=== PATIENT | male | born 1960 | race Caucasian/White ===

== ENCOUNTER → 2016-08-28 | Outpatient (CLI) | payer OTHER ==
[~2016-08-28] MED LIST: ALBU1AER9 INH; ATOR-26 PO; BREX1TAB2 PO; CARV12.52 PO; CHLO100T8 PO; CIPR-255 PO; FLVHFA110 INH; HMLI SC; INSDGI SC; LEVO50TA6 PO; LSN20 PO; MELA1CAP9 PO; MIRT30TA5 PO; NRN400 PO; PRT/40 PO; SILO8CAP PO; SOLI10TA2 PO; TIOTCAP INH
== END | disposition home or self-care (01) ==
LOC: C.PATHSPEC 17:52
PROVIDERS: ATTEND Urology
DX: D49.4 Neoplasm of unspecified behavior of bladder (principal); N30.20 Other chronic cystitis without hematuria

== ENCOUNTER → 2017-01-08 | Outpatient (CLI) | payer OTHER ==
[~2017-01-08] MED LIST changes: +LDDP5 TD; +LVQ500 PO; +PANT40TA2 PO; +PRED10TA PO; -PRT/40 PO; +QUET1TAB34 PO; +SPRIN INH; +WLLSR/300 PO
== END | disposition home or self-care (01) ==
LOC: C.LABSPEC 17:10 → C.PATHSPEC 17:36
PROVIDERS: ATTEND Urology
DX: D49.4 Neoplasm of unspecified behavior of bladder (principal)

== ENCOUNTER → 2017-04-16 | Outpatient (CLI) | payer OTHER ==
[~2017-04-16] MED LIST changes: -LDDP5 TD; -LVQ500 PO; -PANT40TA2 PO; -PRED10TA PO; +PRT/40 PO; -QUET1TAB34 PO; -SPRIN INH; -WLLSR/300 PO
== END | disposition home or self-care (01) ==
LOC: C.PATHSPEC 17:49
PROVIDERS: ATTEND Urology
DX: D49.4 Neoplasm of unspecified behavior of bladder (principal)

== ENCOUNTER 2017-07-14 14:06 | Inpatient (IN) | payer OTHER ==
[~2017-07-14] VITALS: Ht 182.9 cm; Wt 141.6 kg
[~2017-07-14 14:06] MED LIST changes: +PANT40TA2 PO; -PRT/40 PO
[2017-07-14 18:00] VITALS: BP 160/96; PULSE 82; TEMP 36.8; O2SAT 91; BMI 41.9
[2017-07-14] MEDS ORDERED: GLUCOSE 40% GEL 15 GM TUBE PO PRN (18:45)
[2017-07-14] MEDS ORDERED: GLUCOSE 10 TABS/TUBE PO PRN (18:45)
[2017-07-14] MEDS ORDERED: GLUCAGON FOR INJ 1 MG VIAL SQ PRN (18:45)
[2017-07-14] MEDS ORDERED: DEXTROSE 50% 50 ML SYR IV PRN (18:45)
[2017-07-14] MEDS ORDERED: WLLSR/300 PO (18:49)
[2017-07-14] MEDS ORDERED: QUET1TAB34 PO (18:49)
[2017-07-14] MEDS ORDERED: ONDANSETRON INJ 2 MG/ML 2 ML VIAL IV PRN (19:00)
[2017-07-14] MEDS ORDERED: ALUMINUM/MAGNESIUM/SIMETH (MAALOX MAX) 30 ML UDC PO PRN (19:00)
[2017-07-14] MEDS ORDERED: POLYETHYLENE (MIRALAX) 17 GM PACK PO PRN (19:00)
[2017-07-14] MEDS ORDERED: METHYLPREDNISOLONE IV 125 MG in SYRINGE 0 ML IV ONE (19:00)
[2017-07-14 19:31] LABS: ARTERIAL BLD GAS O2 SATURATION 92.2 % (90-95); ARTERIAL BLOOD GAS BASE EXCESS 7.8 mEq/L (-9-1.8); ARTERIAL BLOOD GAS HCO3 36 mmol/L (19-24); ARTERIAL BLOOD GAS PO2 72 mm/Hg (80-95); ARTERIAL BLOOD GAS pH 7.33 (7.35-7.45)
[2017-07-14 19:33] LABS: ALLEN TEST POS (POS); O2 ADMINISTRATION 4 LITERS
--- NOTE | 2017-07-14 19:54 | Critical Care Progress Note ---
Critical Care Progress Note Date of Service Jul 14, 2017. Critical Care Progress Note Requested to see patient by Dr. Lynch for hypercarbic respiratory failure. Patient had recent fall and right chest wall pain prompting ED evaluation and when patient recieved 0.5 mg IV dilaudid patient became unresponsive. During my evaluation patient was alert oriented x3 and admitted to being hungry. Reviewed labs, compensated chronic respiratory acidosis. Reviewed old records no fx seen on OSH CT of chest. Not candidate for CCM at this time. Would avoid narcotic medication. Lidoderm patches, tylenol, NSAID prn. Please call CCM if any other issues arise.
[2017-07-14 20:00] VITALS: O2SAT 91
--- NOTE | 2017-07-14 20:17 | History and Physical ---
History & Physical Date of Service Jul 14, 2017. History & Physical pt seen and examed, d/w PA about davila points of dignosis and care plan, agreed current management, for details please referral to PA's note S: pt has copd exac, asso acute resp failure with hypoxia, hypercapnia with ph 7.29, PCO2 80, PaO2 58 transferred from [facility] lethargic, but oaax3, increased resp rate on NC O2, asso wheezing, ROS details see PA's note O: VS reviewed, RR26, 88% osat 91% in 4 LPM, lethargic, looks tired Lungs: significant decreased breathing sound, mild labored, asso wheezing sporadically, no accessory muscle use Cardiovascular: regular rate, rhythm, no edema, normal peripheral pulses Abdomen / GI: normal bowel sounds, non tender, soft Extremities: no calf tenderness, no pedal edema Neurologic/Psychiatric: lethargic , oriented x 3, CNII-XII intact labs, images reviewed , see PA's note A/P: 57 yo WF copd exac, asso acute resp failure with hypoxia, hypercapnia with ph 7.29, PCO2 80, PaO2 58 transferred from [facility] Critical care eval patient , Not candidate for CCM at this time, recs avoid narcotic medication, fell, ribs contusion, CT of chest has no fx, but pt reported severe pain, Lidoderm patches, tylenol, NSAID prn, ordered counselling quit smoking, offered help PCU, pulm and pain magt consult hx of cough spell and black out prior admission , will f/u PTOT eval and tx.
--- NOTE | 2017-07-14 20:22 | History and Physical ---
History & Physical Date & Time of Service: Jul 14, 2017 at 20:04 Chief Complaint: Acute On Chronic Respiratory Failure Primary Care Physician: No Doctor, Assigned History of Present Illness Source: patient, partner, clinic records, hospital records ([facility] ED records) This is a 57 y/o male with a history of COPD, DM II w/neuropathy, HTN, HLD, post ablative hypothyroidism, bipolar depression, h/o bladder cancer currently in remission, BPH and GERD who presented for direct admission from [facility] on 07/14 with COPD exacerbation and respiratory acidosis. The patient complains of worsening shortness of breath, dyspnea on exertion and intermittent wheezing over the last week. He also notes a productive cough with thick, white sputum. He has been having such severe coughing fits that he has difficulty breathing. On 07/09, the patient was at an AA meeting when he had a coughing fit so severe that he lost consciousness and fell into a table on his left side. Since the fall, the patient has had severe left rib pain that is mostly dull and achy but can become sharp and shooting. The pain is currently a 7/10 and becomes more severe with coughing and deep breaths. The patient initially presented to [facility] ED and was admitted 07/13. He was given a dose of Dilaudid for the pain while in the ED which caused him to become hypoxic. He has been on supplemental oxygen since. The patient was found to be in respiratory acidosis there but was not placed on BiPAP. The patient notes that he has had increased lethargy today and was fighting to stay awake, and this frightened him. The patient denies fevers, chills, sweats, chest pain , palpitations, claudication, nausea, vomiting, abdominal pain, dysuria, hematuria, urinary retention, paralysis, weakness, numbness and tingling. Past Medical/Surgical History COPD DM II HTN HLD Post ablative hypothyroidism Bipolar depression H/o bladder cancer, currently in remission as of Jun 2017 BPH GERD Family History Colon cancer Esophageal cancer Social History Smoking Status: Current Every Day Smoker (over 3 packs per day x 30 years) Smokeless Tobacco Use: No Alcohol Use: none (sober since 2008) Drug Use: none (none since 2002) Marital Status: in relationship Housing status: lives alone Occupational Status: disabled Allergies Coded Allergies: Metformin (Unverified Adverse Reaction, Unknown, DIARRHEA, 11/02/15) Home Medications Scheduled Atorvastatin (Lipitor), 80 MG PO QPM Brexpiprazole (Rexulti), 3 MG PO QAM Bupropion HCl (Wellbutrin Xl), 300 MG PEG DAILY Carvedilol (Coreg), 12.5 MG PO BID Gabapentin (Gabapentin), 800 MG PO QPM Insulin Glargine (Lantus), 77 UNITS SC HS Insulin Lispro (Humalog), 15 UNITS SC TIDM Levothyroxine Sodium (Levothyroxine Sodium), 50 MCG PO QAM Lisinopril (Lisinopril), 20 MG PO BID Melatonin (Melatonin), 60 MG PO HS Mirtazapine (Mirtazapine Odt), 30 MG PO QPM Pantoprazole (Pantoprazole Sodium), 40 MG PO QAM Quetiapine Fumarate (Seroquel), 500 MG PO HS Solifenacin (Vesicare), 20 MG PO QAM Scheduled PRN Albuterol (Proair Hfa), 4 PUFFS INH QID PRN for Shortness of Breath Review of Systems Constitutional: No fever, No chills, No sweats Eyes: No worsening of vision, No eye pain, No diplopia ENT: No hearing loss, No nasal symptoms, No trouble swallowing Respiratory: +Cough, wheezing, SOB, ESCOBAR. Cardiovascular: No chest pain, No claudication, No palpitations Abdomen: No pain, No nausea, No vomiting Musculoskeletal: +Left rib pain. No muscle pain, No swelling Genitourinary - Male: No dysuria, No urinary retention, No hematuria Neurologic: No paralysis, No weakness, No numbness/tingling Integumentary: No rash, No itch, No color change Physical Exam Vital Signs Date Time Temp Pulse Resp B/P (MAP) Pulse Ox O2 Delivery O2 Flow Rate FiO2 07/14/17 18:00 36.8 82 26 160/96 91 Nasal Cannula 4.0 General appearance: +Obese. Well-developed, well-nourished, no apparent distress Head: Normocephalic, atraumatic Eyes: Normal inspection, PERRL, EOMI ENT: +Dry oral mucosa. Normal ENT inspection, hearing grossly normal, pharynx normal Neck: Supple, no JVD, trachea midline Respiratory/Chest: +Wheezing throughout. Poor air movement, very tight. No respiratory distress Cardiovascular: Regular rate & rhythm, no gallop, no murmur Abdomen/GI: +Mild diffuse tenderness. Normal bowel sounds, soft Extremities/Musculoskeletal: +Left lateral ribs/left flank TTP. Normal inspection, no calf tenderness, no pedal edema Neurological/Psych: +Appears somewhat drowsy, reports being very lethargic this afternoon. Normal mood/affect, oriented x 3 Skin: +Ecchymoses over left flank. Normal color, warm/dry, no rash Diagnostics Laboratory Results Results Past 24 Hours Test 07/14/17 18:12 07/14/17 19:20 Range/Units Bedside Glucose 187 70-99 mg/dl Arterial Blood pH 7.33 7.35-7.45 Arterial Blood Partial Pressure CO2 71 35-46 mmHg Arterial Blood Partial Pressure O2 72 80-95 mm/Hg Arterial Blood HCO3 36 19-24 mmol/L Arterial Blood Oxygen Saturation 92.2 90-95 % Arterial Blood Base Excess 7.8 -9-1.8 mEq/L Arterial Blood Gas Delivery 4 LITERS Jorge Test POS POS Impression Assessment and Plan 57 y/o male with a history of COPD, DM II w/neuropathy, HTN, HLD, post ablative hypothyroidism, bipolar depression, h/o bladder cancer currently in remission, BPH and GERD who presented for direct admission from [facility] on 07/14 with COPD exacerbation and respiratory acidosis. CXR and chest CT from OSH did not show any acute rib fractures or acute cardiopulmonary findings. ABG from OSH did show pH 7.26, pCO2 88, pO2 58. Pt also received 2 doses of oral prednisone at OSH due to COPD exacerbation. COPD exacerbation, respiratory acidosis -Admit to telemetry -Stat ABG -BiPAP -Repeat ABG tomorrow am -Solu-Medrol 125 mg IV x 1 now, then -Solu-Medrol 40 mg IV q6h -DuoNebs QIDR and q2h prn SOB/wheezing -Consult pulmonology per Dr. Egan's request -Check urine drug screen, pt has h/o drug abuse -Pt was on Spiriva several years ago, but has not taken this as an outpt for a long time Left rib pain--no fractures seen on OSH imaging reports -Toradol 30 mg IV q6h prn pain -Tylenol prn -Avoid narcotics as Dilaudid 0.5 mg IV x 1 caused significant respiratory depression DM II w/neuropathy--last HgbA1c on record in 2012 -Lantus 77 units SC hs -Insulin sliding scale -Check BSGs q ac and qhs -Recheck HgbA1c -Continue gabapentin 800 mg PO hs HTN, HLD--stable -Continue lisinopril 20 mg PO BID, Coreg 12.5 mg PO BID and Lipitor 80 mg PO hs Post ablative hypothyroidism -Continue Synthroid 50 mcg PO qd Bipolar depression -Continue Rexulti 3 mg PO qd, Wellbutrin 300 mg PO qd, Remeron 30 mg PO hs, and Seroquel 500 mg PO hs BPH, h/o bladder cancer--pt follows with Dr. Adkins -Continue Vesicare 20 mg PO qam DVT prophylaxis -Enoxaparin 40 mg SC q24h -AJIT Alan Code Status -Level I, FULL RESUSCITATION STATUS Level of Care Telemetry Advanced Directives Existing Living Will: No Existing Power of Public Employment Mediator: No Resuscitation Status FULL RESUSCITATION VTE Prophylaxis VTE Risk Assessment Done? Y/N: Yes Risk Level: Moderate Given or contraindicated: Enoxaparin (Lovenox)SQ, T.E.D. Stockings, SCD's
[2017-07-14 20:30] VITALS: BP 149/77; PULSE 87; TEMP 37.1; O2SAT 88
[2017-07-14] MEDS: PATIENT'S HEIGHT AND/OR WEIGHT NEEDED SCH ×2 (20:30→22:30)
[2017-07-14] MEDS ORDERED: MELATONIN PO SCH (21:00)
[2017-07-14] MEDS: INSULIN ASPART 100 UNITS/ML 3 ML PEN SC SCH (21:00)
[2017-07-14] MEDS ORDERED: INSULIN GLARGINE SOLOSTAR 100 UNITS/ML 3 ML PEN SC SCH (21:00)
[2017-07-14 21:11] LABS: PROTHROMBIN TIME (PATIENT) 10.6 SECONDS (9.0-12.0)
[2017-07-14] MEDS: ALBUT/IPRATROP 3MG/0.5MG NEB 3 ML VIAL INH SCH (21:26)
[2017-07-14 21:27] VITALS: PULSE 81; O2SAT 91
[2017-07-14 21:27] LABS: BENZODIAZEPINE, URINE NEG (NEG); COCAINE,URINE NEG (NEG); PHENCYCLIDINE, URINE NEG (NEG)
[2017-07-14] MEDS: MIRTAZAPINE SOLTAB 15 MG PO SCH (21:48)
[2017-07-14] MEDS: CARVEDILOL 12.5 MG TAB PO SCH (21:49)
[2017-07-14] MEDS: ATORVASTATIN 40 MG TAB PO SCH (21:49)
[2017-07-14] MEDS: GABAPENTIN 400 MG CAP PO SCH (21:50)
[2017-07-14] MEDS: LISINOPRIL 20 MG TAB PO SCH (21:50)
[2017-07-14] MEDS: QUETIAPINE FUMARATE 100 MG TAB PO SCH (21:51)
[2017-07-14] MEDS: KETOROLAC TROMETHAMINE 30 MG/ML VIAL IV PRN (22:08)
[2017-07-14 23:52] VITALS: BP 143/77; PULSE 93; TEMP 36.6; O2SAT 88
[2017-07-14 23:59] VITALS: O2SAT 91
[2017-07-15] VITALS (13 sets, daily range): BP systolic 125–159; BP diastolic 69–87; PULSE 61–86; TEMP 36.2–36.9; O2SAT 90–98; Ht 182.9 cm; Wt 141.6 kg
[2017-07-15] MEDS: ENOXAPARIN 40 MG/0.4 ML SYR SC SCH ×2 (00:01→21:00)
[2017-07-15] MEDS: METHYLPREDNISOLONE IV 40 MG in SYRINGE 0 ML IV SCH ×4 (00:03→16:51)
[2017-07-15] MEDS: PATIENT'S HEIGHT AND/OR WEIGHT NEEDED SCH ×2 (00:03→02:10)
[2017-07-15] MEDS ORDERED: INFLUENZA VIRUS QUAD VACCINE 0.5 ML SYR IM. ONE (05:00)
[2017-07-15] MEDS ORDERED: INFLUENZA ADMINISTRATION CHARGE ONE (05:00)
[2017-07-15] MEDS ORDERED: NURSING DECISION MEDICATION ORDER SCH (05:15)
[2017-07-15] MEDS: LEVOTHYROXINE 50 MCG TAB PO SCH (05:52)
[2017-07-15] MEDS: ALBUT/IPRATROP 3MG/0.5MG NEB 3 ML VIAL INH SCH ×4 (06:23→19:13)
[2017-07-15] MEDS: PANTOprazole SOD 40 MG TAB PO SCH (08:05)
[2017-07-15] MEDS: LIDODERM (LIDOCAINE) PATCH 5% TD SCH (08:06)
[2017-07-15] MEDS: BuPROPion XL 300 MG TABCR PO SCH (08:06)
[2017-07-15] MEDS: LISINOPRIL 20 MG TAB PO SCH ×2 (08:06→20:59)
[2017-07-15] MEDS: CARVEDILOL 12.5 MG TAB PO SCH ×2 (08:06→21:00)
[2017-07-15] MEDS: INSULIN ASPART 100 UNITS/ML 3 ML PEN SC SCH ×4 (08:13→21:06)
[2017-07-15] MEDS: KETOROLAC TROMETHAMINE 30 MG/ML VIAL IV PRN ×2 (08:21→16:51)
[2017-07-15 09:17] LABS: ARTERIAL BLD GAS O2 SATURATION 92.2 % (90-95); ARTERIAL BLOOD GAS BASE EXCESS 6.8 mEq/L (-9-1.8); ARTERIAL BLOOD GAS HCO3 36 mmol/L (19-24); ARTERIAL BLOOD GAS PO2 73 mm/Hg (80-95); ARTERIAL BLOOD GAS pH 7.29 (7.35-7.45)
[2017-07-15 09:18] LABS: O2 ADMINISTRATION 40%
[2017-07-15 09:20] LABS: ALLEN TEST POS (POS)
[2017-07-15 09:20] LABS: HEMATOCRIT 39.4 % (42-52); MEAN CELL VOLUME 93.4 fL (80-100); MEAN CORPUSCULAR HEMOGLOBIN 28.7 pg (25-34); MEAN CORPUSCULAR HGB CONC 30.7 g/dl (32-36); MEAN PLATELET VOLUME 8.5 fL (7.4-10.4); PLATELET COUNT 173 K/uL (130-400); RED BLOOD COUNT 4.22 M/uL (4.7-6.1); WHITE BLOOD COUNT 12.98 K/uL (4.8-10.8)
[2017-07-15 09:36] LABS: BUN/CREATININE RATIO 20.6 (10-20); CALCIUM 8.8 mg/dl (8.5-10.1); CREATININE 0.79 mg/dl (0.60-1.40); MAGNESIUM 2.3 mg/dl (1.8-2.4); PHOSPHORUS 4.1 mg/dl (2.5-4.9); POTASSIUM 4.7 mmol/L (3.5-5.1)
[2017-07-15 10:34] LABS: ESTIMATED AVERAGE GLUCOSE 180 mg/dl; HA1C FLAG Normal (Normal)
--- NOTE | 2017-07-15 11:28 | Hospitalist Progress Note ---
Hospitalist Progress Note Date of Service Jul 15, 2017. Subjective Pt evaluation today including: conversation w/ patient Voiding: no voiding problems Pt still having pain left ribs but feels better with pain patch on. Coughing a lot for a few weeks. Committed to quitting smoking. Has not moved bowels in 4 days All Other Systems: Reviewed and Negative Objective Vital Signs Date Time Temp Pulse Resp B/P (MAP) Pulse Ox O2 Delivery O2 Flow Rate FiO2 07/15/17 08:00 Oxymask 4.0 07/15/17 07:14 36.5 82 20 129/76 (93) 90 Oxymask 4.0 07/15/17 06:23 86 20 91 Mask 4.0 07/15/17 04:00 36.9 84 22 133/75 (94) 90 Oxymask 4.0 07/15/17 04:00 91 Oxymask 4.0 07/14/17 23:59 91 Nasal Cannula 4.0 07/14/17 23:52 36.6 93 26 143/77 (99) 88 Oxymask 4.0 07/14/17 21:27 81 22 91 Nasal Cannula 4.0 07/14/17 20:30 37.1 87 32 149/77 (101) 88 Nasal Cannula 4.0 07/14/17 20:00 91 Nasal Cannula 4.0 07/14/17 18:00 36.8 82 26 160/96 91 Nasal Cannula 4.0 Physical Exam General Appearance: no apparent distress (but is drowsy, keeps closing eyes while I'm talking to him), + obese Eyes: normal inspection, sclerae normal ENT: hearing grossly normal Neck: trachea midline Respiratory/Chest: no respiratory distress, no accessory muscle use, + pertinent finding (significantly decreased BS throughout with very faint exp wheezes) Cardiovascular: regular rate, rhythm, no edema, no murmur Abdomen: normal bowel sounds, non tender, soft (and obese) Extremities: no pedal edema, no calf tenderness Neurologic/Psychiatric: normal mood/affect, oriented x 3, + pertinent finding ( drowsy but wakes up easily) Skin: normal color, warm/dry, no rash Laboratory Results Last 24 Hours Test 07/14/17 18:12 07/14/17 19:20 07/14/17 20:22 07/14/17 20:31 Bedside Glucose 187 mg/dl 161 mg/dl Arterial Blood pH 7.33 Arterial Blood Partial Pressure CO2 71 mmHg Arterial Blood Partial Pressure O2 72 mm/Hg Arterial Blood HCO3 36 mmol/L Arterial Blood Oxygen Saturation 92.2 % Arterial Blood Base Excess 7.8 mEq/L Arterial Blood Gas Delivery 4 LITERS Jorge Test POS Prothrombin Time 10.6 SECONDS Prothromb Time International Ratio 1.0 Test 07/15/17 06:56 07/15/17 08:50 07/15/17 08:58 Bedside Glucose 221 mg/dl White Blood Count 12.98 K/uL Red Blood Count 4.22 M/uL Hemoglobin 12.1 g/dL Hematocrit 39.4 % Mean Corpuscular Volume 93.4 fL Mean Corpuscular Hemoglobin 28.7 pg Mean Corpuscular Hemoglobin Concent 30.7 g/dl RDW Standard Deviation 51.4 fL RDW Coefficient of Variation 15.1 % Platelet Count 173 K/uL Mean Platelet Volume 8.5 fL Sodium Level 133 mmol/L Potassium Level 4.7 mmol/L Chloride Level 95 mmol/L Carbon Dioxide Level 37 mmol/L Anion Gap 1.0 mmol/L Blood Urea Nitrogen 16 mg/dl Creatinine 0.79 mg/dl Est Creatinine Clear Calc Drug Dose 149.1 ml/min Estimated GFR () 115.5 Estimated GFR (Non- 99.7 BUN/Creatinine Ratio 20.6 Random Glucose 237 mg/dl Estimated Average Glucose 180 mg/dl Hemoglobin A1c 7.9 % Calcium Level 8.8 mg/dl Phosphorus Level 4.1 mg/dl Magnesium Level 2.3 mg/dl Arterial Blood pH 7.29 Arterial Blood Partial Pressure CO2 76 mmHg Arterial Blood Partial Pressure O2 73 mm/Hg Arterial Blood HCO3 36 mmol/L Arterial Blood Oxygen Saturation 92.2 % Arterial Blood Base Excess 6.8 mEq/L Arterial Blood Gas Delivery 40% Jorge Test POS Assessment and Plan Pt is a 57 y/o male with a history of COPD, DM II w/neuropathy, HTN, HLD, post ablative hypothyroidism, bipolar d/o, h/o bladder cancer currently in remission , BPH and GERD who presented for direct admission from [facility] on 07/14 with COPD exacerbation and acute on chronic hypercapnic and hypoxemic respiratory failure. CXR and chest CT did not show any acute rib fractures or acute cardiopulmonary findings but showed emphysematous changes. ABG from [facility] did show pH 7.26, pCO2 88, pO2 58. Pt also received 2 doses of oral prednisone at [facility] due to COPD exacerbation, but he was not placed on BiPAP. Acute COPD exacerbation/Acute on chronic hypercapnic and hypoxemic respiratory failure/Current smoker. ABG this AM still 7.29/76/73 on 40% O2 which is worse than last night. Drowsy. Not moving air well at all. -continue telemetry -start BiPAP now -Repeat ABG in 1 hour after BiPAP started -continue Solu-Medrol 40 mg IV q6h -DuoNebs QIDR -add Levaquin 500mg IV daily for OCPD exacerbation -Consult pulmonology appreciated -Pt was on Spiriva several years ago, but has not taken this as an outpt for a long time-restart on dc -needs Symbicort likely as well on dc -needs formal PFTs as outpt Left rib pain--no fractures seen on imaging reports -Toradol 30 mg IV q6h prn pain -lidocaine patch -Tylenol prn -Avoid narcotics as Dilaudid 0.5 mg IV x 1 caused significant respiratory depression DM II w/neuropathy--HgbA1c 7.9%, with hyperglycemia here due to steroids -Lantus 77 units SC hs and add 10 units qhs -Insulin sliding scale and add carb coverage -Check BSGs q ac and qhs -Continue gabapentin 800 mg PO hs HTN, HLD--stable -Continue lisinopril 20 mg PO BID, Coreg 12.5 mg PO BID and Lipitor 80 mg PO hs Post ablative hypothyroidism-no recent TSH in our records -Continue Synthroid 50 mcg PO qd -check TSH Bipolar d/o- Tox screen likely with false + MDMA from wellbutrin usage -Continue Rexulti 3 mg PO qd if he can bring from home -continue Wellbutrin 300 mg PO qd, Remeron 30 mg PO hs, and Seroquel 500 mg PO hs BPH, h/o bladder cancer--pt follows with Dr. Adkins - Vesicare 20 mg PO qam not available here-will watch for bladder issues GERD-continue PPI DVT prophylaxis -Enoxaparin 40 mg SC q24h -AJIT gupta and SCDs Code Status -Level I, FULL RESUSCITATION STATUS
[2017-07-15] MEDS ORDERED: NURSING VERBAL MED ORDER ONE (11:45)
[2017-07-15] MEDS ORDERED: NovoLOG PER UNIT CHARGE SC ONE (11:45)
[2017-07-15] MEDS: LEVOFLOXACIN / D5W 500 MG in PREMIXED IN D5W 100 ML IV SCH (11:56)
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
[2017-07-15 13:21] LABS: ALLEN TEST POS (POS); ARTERIAL BLD GAS O2 SATURATION 90.8 % (90-95); ARTERIAL BLOOD GAS BASE EXCESS 6.9 mEq/L (-9-1.8); ARTERIAL BLOOD GAS HCO3 35 mmol/L (19-24); ARTERIAL BLOOD GAS PO2 66 mm/Hg (80-95); ARTERIAL BLOOD GAS pH 7.33 (7.35-7.45); O2 ADMINISTRATION 4L
--- NOTE | 2017-07-15 13:52 | DIAGNOSTIC IMAGING REPORT ---
CT HEAD WITHOUT CONTRAST (CT) CLINICAL HISTORY: Head pain status post trauma COMPARISON STUDY: No previous studies for comparison. TECHNIQUE: Axial CT of the brain is performed from the vertex to the skull base. IV contrast was not administered for this examination. A dose lowering technique was utilized adhering to the principles of ALARA. CT DOSE: 810.83 mGy.cm FINDINGS: No intra or extra-axial mass lesions are visualized. There is no CT evidence of acute cortical infarction. There is no evidence of midline shift. There is no acute hemorrhage. No calvarial fractures are visualized. There is right frontal encephalomalacia, likely secondary to a prior infarct or remote trauma. Please correlate with prior history. If this finding is incongruent with the prior history, then an MRI could be obtained in follow-up, to exclude other pathologic entities. There is no evidence of pathologic ventricular dilatation. There is mild left maxillary sinus mucosal thickening. There is no evidence of acute sinusitis. There is nasal septal deviation to the right. IMPRESSION: 1. No acute intracranial findings 2. 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 07/15/2017 1:51 PM Dictated Date/Time: 07/15/2017 1:47 PM
[2017-07-15 16:40] LABS: ARTERIAL BLOOD GAS BASE EXCESS 7.3 mEq/L (-9-1.8); ARTERIAL BLOOD GAS HCO3 34 mmol/L (19-24); ARTERIAL BLOOD GAS PO2 60 mm/Hg (80-95); ARTERIAL BLOOD GAS pH 7.38 (7.35-7.45)
[2017-07-15 16:41] LABS: ALLEN TEST POS (POS)
[2017-07-15] MEDS: MIRTAZAPINE SOLTAB 15 MG PO SCH (20:58)
[2017-07-15] MEDS: QUETIAPINE FUMARATE 100 MG TAB PO SCH (20:59)
[2017-07-15] MEDS ORDERED: INSULIN GLARGINE SOLOSTAR 100 UNITS/ML 3 ML PEN SC SCH ×2 (21:00)
[2017-07-15] MEDS: GABAPENTIN 400 MG CAP PO SCH (21:07)
[2017-07-15] MEDS: ATORVASTATIN 40 MG TAB PO SCH (21:07)
[2017-07-15] MEDS: INSULIN GLARGINE SC SCH (21:28)
[2017-07-16] VITALS (13 sets, daily range): BP systolic 134–163; BP diastolic 73–92; PULSE 68–78; TEMP 36.4–36.7; O2SAT 90–95
[2017-07-16] MEDS: METHYLPREDNISOLONE IV 40 MG in SYRINGE 0 ML IV SCH ×4 (00:22→21:23)
[2017-07-16] MEDS: KETOROLAC TROMETHAMINE 30 MG/ML VIAL IV PRN ×3 (00:27→15:54)
[2017-07-16] MEDS: ACETAMINOPHEN 325 MG TAB PO PRN (05:04)
[2017-07-16] MEDS: LEVOTHYROXINE 50 MCG TAB PO SCH (05:04)
[2017-07-16 07:08] LABS: COMPLETE YES; HEMATOCRIT 39.7 % (42-52); IG% 0.3 %; LYMPH % 4.4 %; LYMPH ABS # 0.71 K/uL (1.2-3.4); MEAN CELL VOLUME 90.8 fL (80-100); MEAN CORPUSCULAR HEMOGLOBIN 28.6 pg (25-34); MEAN CORPUSCULAR HGB CONC 31.5 g/dl (32-36); MEAN PLATELET VOLUME 8.1 fL (7.4-10.4); NEUT % 90.3 %; PLATELET COUNT 169 K/uL (130-400); RED BLOOD COUNT 4.37 M/uL (4.7-6.1)
[2017-07-16 07:22] LABS: ALLEN TEST POS (POS); ARTERIAL BLD GAS O2 SATURATION 92.3 % (90-95); ARTERIAL BLOOD GAS BASE EXCESS 7.2 mEq/L (-9-1.8); ARTERIAL BLOOD GAS HCO3 35 mmol/L (19-24); ARTERIAL BLOOD GAS PO2 72 mm/Hg (80-95); ARTERIAL BLOOD GAS pH 7.36 (7.35-7.45)
[2017-07-16 07:23] LABS: O2 ADMINISTRATION 4 L
[2017-07-16] MEDS: ALBUT/IPRATROP 3MG/0.5MG NEB 3 ML VIAL INH SCH ×4 (07:23→19:12)
[2017-07-16 07:38] LABS: CREATININE 0.91 mg/dl (0.60-1.40); GLUCOSE 174 mg/dl (70-99)
[2017-07-16 07:39] LABS: ALT/SGPT 15 U/L (12-78); BUN/CREATININE RATIO 28.3 (10-20); CALCIUM 8.8 mg/dl (8.5-10.1); CARBON DIOXIDE 36 mmol/L (21-32); CHLORIDE 97 mmol/L (98-107); MAGNESIUM 2.3 mg/dl (1.8-2.4); POTASSIUM 4.9 mmol/L (3.5-5.1); SODIUM 134 mmol/L (136-145)
[2017-07-16 07:41] LABS: ALKALINE PHOSPHATASE 103 U/L (45-117); AST/SGOT 6 U/L (15-37)
[2017-07-16 07:43] LABS: BLOOD UREA NITROGEN 26 mg/dl (7-18)
[2017-07-16] MEDS: INSULIN ASPART 100 UNITS/ML 3 ML PEN SC SCH ×4 (08:53→21:28)
[2017-07-16] MEDS: LIDODERM (LIDOCAINE) PATCH 5% TD SCH (08:53)
[2017-07-16] MEDS: CARVEDILOL 12.5 MG TAB PO SCH ×2 (08:54→21:21)
[2017-07-16] MEDS: PANTOprazole SOD 40 MG TAB PO SCH (08:54)
[2017-07-16] MEDS: BuPROPion XL 300 MG TABCR PO SCH (08:54)
[2017-07-16] MEDS: LISINOPRIL 20 MG TAB PO SCH ×2 (08:54→21:22)
[2017-07-16] MEDS: TIOTROPIUM BROMIDE 5 PUFF/90 MCG INH INH SCH (08:55)
--- NOTE | 2017-07-16 10:57 | Hospitalist Progress Note ---
Hospitalist Progress Note Date of Service Jul 16, 2017. Subjective Pt evaluation today including: conversation w/ patient Pt reports feeling better today. He doesn't remember much from yesterday when he was more hypercapnic. Still feels tightness in the chest constantly. He is tolerating BiPAP at nighttime fairly well and thinks he needs one for at home. Constitutional: No fever All Other Systems: Reviewed and Negative Objective Vital Signs Date Time Temp Pulse Resp B/P (MAP) Pulse Ox O2 Delivery O2 Flow Rate FiO2 07/16/17 07:23 69 20 93 Nasal Cannula 4.0 07/16/17 07:15 36.6 70 20 134/73 (93) 91 Nasal Cannula 4.0 07/16/17 04:22 36.6 78 24 148/75 (99) 93 Nasal Cannula 3.0 07/16/17 04:00 BiPAP 30 07/15/17 23:59 BiPAP 30 07/15/17 23:47 36.2 80 32 150/82 (104) 93 BiPAP 30 07/15/17 20:00 93 Mask 3.5 30 07/15/17 19:17 36.4 76 20 159/87 (111) 91 Nasal Cannula 3.0 07/15/17 19:13 72 20 91 Nasal Cannula 3.0 07/15/17 16:00 92 Mask 3.5 30 07/15/17 15:58 76 20 92 Mask 3.5 07/15/17 15:35 76 94 30 07/15/17 15:33 36.6 61 20 148/78 (101) 98 BiPAP 07/15/17 12:00 Oxymask 5.0 07/15/17 11:51 36.5 78 18 125/69 (87) 91 Mask 07/15/17 11:19 76 20 93 Mask 4.0 Physical Exam General Appearance: WD/WN, no apparent distress, + obese Eyes: normal inspection, sclerae normal ENT: hearing grossly normal Neck: trachea midline Respiratory/Chest: no respiratory distress, no accessory muscle use, + decreased breath sounds (throughout but moving air much better today, still some faint exp wheezes, no crackles or rhonchi) Cardiovascular: regular rate, rhythm, no edema, no murmur Abdomen: normal bowel sounds, non tender, soft Extremities: normal range of motion, non-tender, normal inspection, no calf tenderness Neurologic/Psychiatric: alert, normal mood/affect, oriented x 3 Skin: normal color, warm/dry, no rash Laboratory Results Last 24 Hours Test 07/15/17 11:12 07/15/17 13:00 07/15/17 14:59 07/15/17 16:27 Bedside Glucose 457 mg/dl 143 mg/dl Arterial Blood pH 7.33 7.38 Arterial Blood Partial Pressure CO2 67 mmHg 59 mmHg Arterial Blood Partial Pressure O2 66 mm/Hg 60 mm/Hg Arterial Blood HCO3 35 mmol/L 34 mmol/L Arterial Blood Oxygen Saturation 90.8 % 89.0 % Arterial Blood Base Excess 6.9 mEq/L 7.3 mEq/L Arterial Blood Gas Delivery 4L 30% FiO2 Jorge Test POS POS Test 07/15/17 20:16 07/16/17 06:16 07/16/17 06:56 07/16/17 07:09 Bedside Glucose 205 mg/dl 167 mg/dl White Blood Count 16.20 K/uL Red Blood Count 4.37 M/uL Hemoglobin 12.5 g/dL Hematocrit 39.7 % Mean Corpuscular Volume 90.8 fL Mean Corpuscular Hemoglobin 28.6 pg Mean Corpuscular Hemoglobin Concent 31.5 g/dl Platelet Count 169 K/uL Mean Platelet Volume 8.1 fL Neutrophils (%) (Auto) 90.3 % Lymphocytes (%) (Auto) 4.4 % Monocytes (%) (Auto) 5.0 % Eosinophils (%) (Auto) 0.0 % Basophils (%) (Auto) 0.0 % Neutrophils # (Auto) 14.63 K/uL Lymphocytes # (Auto) 0.71 K/uL Monocytes # (Auto) 0.81 K/uL Eosinophils # (Auto) 0.00 K/uL Basophils # (Auto) 0.00 K/uL RDW Standard Deviation 49.2 fL RDW Coefficient of Variation 15.1 % Immature Granulocyte % (Auto) 0.3 % Immature Granulocyte # (Auto) 0.05 K/uL Sodium Level 134 mmol/L Potassium Level 4.9 mmol/L Chloride Level 97 mmol/L Carbon Dioxide Level 36 mmol/L Anion Gap 2.0 mmol/L Blood Urea Nitrogen 26 mg/dl Creatinine 0.91 mg/dl Est Creatinine Clear Calc Drug Dose 129.5 ml/min Estimated GFR () 108.0 Estimated GFR (Non- 93.2 BUN/Creatinine Ratio 28.3 Random Glucose 174 mg/dl Calcium Level 8.8 mg/dl Magnesium Level 2.3 mg/dl Total Bilirubin 0.3 mg/dl Direct Bilirubin < 0.1 mg/dl Aspartate Amino Transf (AST/SGOT) 6 U/L Alanine Aminotransferase (ALT/SGPT) 15 U/L Alkaline Phosphatase 103 U/L Total Protein 6.2 gm/dl Albumin 2.7 gm/dl Arterial Blood pH 7.36 Arterial Blood Partial Pressure CO2 62 mmHg Arterial Blood Partial Pressure O2 72 mm/Hg Arterial Blood HCO3 35 mmol/L Arterial Blood Oxygen Saturation 92.3 % Arterial Blood Base Excess 7.2 mEq/L Arterial Blood Gas Delivery 4 L Jorge Test POS Assessment and Plan Pt is a 57 y/o male with a history of COPD, DM II w/neuropathy, HTN, HLD, post ablative hypothyroidism, bipolar d/o, h/o bladder cancer currently in remission , BPH and GERD who presented for direct admission from [facility] on 07/14 with COPD exacerbation and acute on chronic hypercapnic and hypoxemic respiratory failure. CXR and chest CT did not show any acute rib fractures or acute cardiopulmonary findings but showed emphysematous changes. ABG from [facility] did show pH 7.26, pCO2 88, pO2 58. Pt also received 2 doses of oral prednisone at [facility] due to COPD exacerbation, but he was not placed on BiPAP there. Acute COPD exacerbation/Acute on chronic hypercapnic and hypoxemic respiratory failure/Current smoker. ABGs here are improving with normal pH now and PaCO2 66 today. Was encephalopathic yesterday with hypercapnia and now today much more mentally clear after using BiPAP all night and yesterday afternoon. Moving air better today Has h/o IKE and likely has OHS -continue telemetry -continue BiPAP prn during day and at nighttime -will NEED OVERNIGHT OXIMETRY OFF BIPAP with abg the subsequent AM to qualify for BiPAP at home within 48 hrs of dc -will also need 2 step for daytime O2 within 48 hrs of dc -continue Solu-Medrol 40 mg IV and will taper down to q8h -DuoNebs QIDR -continue Levaquin 500mg daily for COPD exacerbation x 7 day course, can switch to po -Consult pulmonology appreciated -Pt was on Spiriva several years ago, but has not taken this as an outpt for a long time-restart on dc -needs Symbicort or Advair likely as well on dc -needs formal PFTs as outpt Left rib pain--no fractures seen on imaging reports-improved now -Toradol 30 mg IV q6h prn pain -lidocaine patch -Tylenol prn -Avoid narcotics as Dilaudid 0.5 mg IV x 1 caused significant respiratory depression DM II w/neuropathy--HgbA1c 7.9%, with hyperglycemia here due to steroids which is now improved with increased Lantus dose -increased Lantus to 87 units SC hs for now, may need to titrate back down when steroids taper -Insulin sliding scale and add carb coverage -Check BSGs q ac and qhs -Continue gabapentin 800 mg PO hs HTN, HLD--stable -Continue lisinopril 20 mg PO BID, Coreg 12.5 mg PO BID and Lipitor 80 mg PO hs Post ablative hypothyroidism-no recent TSH in our records. TSH here low at 0.237. Not terribly off -Continue Synthroid 50 mcg PO qd which is home dose -repeat TSH in 4 weeks with PCP Bipolar d/o- Tox screen likely with false + MDMA from wellbutrin usage -Continue Rexulti 3 mg PO qd if he can bring from home -continue Wellbutrin 300 mg PO qd, Remeron 30 mg PO hs, and Seroquel 500 mg PO hs BPH, h/o bladder cancer--pt follows with Dr. Adkins - Vesicare 20 mg PO qam not available here-will watch for bladder issues GERD-continue PPI DVT prophylaxis -Enoxaparin 40 mg SC q24h -AJIT gupta and SCDs Code Status -Level I, FULL RESUSCITATION STATUS Dispo- to home likely in 2 days, needs home BiPAP and O2 arranged as above
[2017-07-16] MEDS: LEVOFLOXACIN / D5W 500 MG in PREMIXED IN D5W 100 ML IV SCH (12:39)
[2017-07-16] MEDS: MAGNESIUM HYDROXIDE SUSP 30 ML UDC PO PRN (12:41)
[2017-07-16] MEDS ORDERED: PERFLUTREN LIPID MICROSPHERE (DEFINITY) IV ONE (15:46)
--- NOTE | 2017-07-16 17:36 | ECHOCARDIOGRAM REPORT ---
*NOTICE TO RECEIVING [employer] This information is strictly Confidential and protected under [place] law. [place] law prohibits you from making any further disclosure of this information unless further disclosure is expressly permitted by the written consent of the person to whom it pertains or is authorized by law. A general authorization for the release of medical or other information is not sufficient for this purpose. Hospital accepts no responsibility if the information is made available to any other person, INCLUDING THE PATIENT. Interpretation Summary * Name: SOMMER ROY Study Date: 07/16/2017 03:21 PM BP: 160/88 mmHg * Patient Location: C.2T\S\S241\S\2 HR: 73 * : 1960 (M/d/yy) Gender: Male Height: 72 in * Age: 57 yrs Ethnicity: CA Weight: 306 lb * Ordering Physician: Marina Weiner * Performed By: Anahi Blackman RDCS * * Reason For Study: Pulmonary hypertension * BSA: 2.6 m2 * -- Conclusions -- * 1. Top-normal left ventricular size for BSA. Normal left ventricular systolic function. EF 55-60%. No regional wall motion abnormalities. No left ventricular hypertrophy. Type 2 diastolic dysfunction. * 2. Aortic valve sclerosis mild, without significant aortic valvular stenosis. * 3. Mild aortic root dilatation. * 4. Could not estimate right ventricular systolic pressure due to inadequate tricuspid regurgitant jet. * 5. Technically difficult study, enhanced with IV Definity. * 6. No prior study available for comparison. Procedure Details * A complete two-dimensional transthoracic echocardiogram was performed (2D, M-mode, Doppler and color flow Doppler). * A contrast injection of Definity was performed to improve assessment of LV function. * Contrast was injected into an intravenous site in the left arm. * One vial of Definity ultrasound contrast was diluted in normal saline to a total volume of 10 ml. A total of '3' ml of solution was administered during imaging. * Lot # [id number] of Definity utilized for procedure. * Expiration date 1 sep 29. * The attending nurse who injected the contrast agent was Obinna Portillo RN. Left Ventricle * Top-normal left ventricular size for BSA. Normal left ventricular systolic function. EF 55-60%. No regional wall motion abnormalities. No left ventricular hypertrophy. Type 2 diastolic dysfunction. Right Ventricle * Right ventricle grossly normal size to mildly dilated. * The right ventricular systolic function is normal as assessed by tricuspid annular plane systolic excursion (TAPSE) (normal >1.5 cm). Atria * The left atrial size is normal. * Right atrial size is normal. * There is no evidence of atrial septal defect, but resolution does not allow assessment for a patent foramen ovale. Mitral Valve * The mitral valve is grossly normal. * There is no mitral valve stenosis. * Significant mitral regurgitation is absent. Tricuspid Valve * The tricuspid valve is not well visualized. * There is no tricuspid stenosis. * Significant tricuspid regurgitation is absent. Aortic Valve * Aortic valve sclerosis mild, without significant aortic valvular stenosis. * The aortic valve is trileaflet. * No aortic regurgitation is present. Pulmonic Valve * The pulmonary valve is inadequately visualized, but the Doppler data is adequate for interpretation. * There is no pulmonic valvular stenosis. Great Vessels * Mild aortic root dilatation. * Ascending aorta of normal dimension Pericardium/Pleural * There is no pericardial effusion. Great Vessels * Dilated IVC with normal inspiratory collapse. MMode 2D Measurements and Calculations IVSd 1.0 cm LVIDd 5.4 cm LVIDs 3.8 cm LVPWd 0.98 cm IVS/LVPW 1.0 FS 30.1 % EDV(Teich) 141.6 ml ESV(Teich) 61.0 ml EF(Teich) 56.9 % EDV(cubed) 157.9 ml ESV(cubed) 53.8 ml EF(cubed) 65.9 % LV mass(C)d 204.0 grams LV mass(C)dI 79.9 grams/m\S\2 SV(Teich) 80.6 ml SI(Teich) 31.6 ml/m\S\2 SV(cubed) 104.0 ml SI(cubed) 40.8 ml/m\S\2 Ao root diam 4.7 cm Ao root area 17.7 cm\S\2 ACS 2.2 cm LA dimension 4.0 cm asc Aorta Diam 3.2 cm LA/Ao 0.85 LVOT diam 2.6 cm LVOT area 5.1 cm\S\2 Doppler Measurements and Calculations MV E max eddi 98.0 cm/sec MV A max eddi 85.4 cm/sec MV E/A 1.1 MV dec time 0.22 sec Ao V2 max 126.0 cm/sec Ao max PG 6.4 mmHg Ao max PG (full) 3.2 mmHg LYN(V,A) 3.6 cm\S\2 LYN(V,D) 3.6 cm\S\2 LV V1 max PG 3.2 mmHg LV V1 max 88.8 cm/sec PA V2 max 95.0 cm/sec PA max PG 3.6 mmHg PA acc slope 614.6 cm/sec\S\2 PA acc time 0.09 sec RAP systole 8.0 mmHg PA pr(Accel) 37.8 mmHg
--- NOTE | 2017-07-16 20:11 | Pulmonology Progress Note ---
Pulmonary Progress Note Date of Service Jul 16, 2017. Attending Dr. Weiner Subjective Patient is seen and examined. He states that he is feeling better. Less short of breath. Still has intermittent wheezing, with intermittent nonproductive cough. Requesting something to help make him bring up sputum. He tolerated BiPAP overnight. Objective Vital signs at the last 24 hours. MAXIMUM TEMPERATURE 36.6, blood pressure 134/ 73 to 160/88, respiratory rate 16-24, pulse oximetry 90-95% on 3 L nasal cannula. Gen.: Awake alert oriented 3, no acute respiratory distress. Able to speak in sentences without use of accessory muscles of respiration. CVS: S1-S2, regular rate and rhythm Lungs: Wheezing bilaterally throughout, prolonged expiratory phase Abdomen: Obese, nontender, nondistended bowel sounds positive Extremities: Trace edema bilateral lower extremities, no cyanosis, no clubbing Laboratory data reviewed. White blood count increased from 12-16 today. Sodium 134, chloride 97, carbon dioxide 36, BUN 26, creatinine 0.91. ABG this morning shows pH of 7.36, PCO2 of 62, PO2 of 72 with a saturation of 92 % on 4 L nasal cannula. Imaging reviewed. TTE from 07/16/2017 * 1. Top-normal left ventricular size for BSA. Normal left ventricular systolic function. EF 55-60%. No regional wall motion abnormalities. No left ventricular hypertrophy. Type 2 diastolic dysfunction. * 2. Aortic valve sclerosis mild, without significant aortic valvular stenosis. * 3. Mild aortic root dilatation. * 4. Could not estimate right ventricular systolic pressure due to inadequate tricuspid regurgitant jet. * 5. Technically difficult study, enhanced with IV Definity. * 6. No prior study available for comparison. Medications reviewed. Assessment & Plan COPD exacerbation Left flank pain status post fall Possible Obstructive sleep apnea Obesity hypoventilation syndrome Hypothyroidism Tobacco use disorder Diastolic dysfunction Mr. Alvarez is a 57-year-old male who presents after recent fall and complaints of left rib and flank pain. He was a direct transfer from [facility] after Dilaudid was administered and subsequently developed acute on chronic hypoxemic hypercapnic respiratory failure. Patient is currently wheezing and is likely in COPD exacerbation at this time. TODAY: Patient is feeling better from a respiratory standpoint. He still continues to have nonproductive cough and wheeze. He is more alert today. TTE shows grade 2 diastolic systolic dysfunction. TSH mildly decreased. Recommendations The current time I would continue with supplemental oxygen to maintain SaO2 between 88-92%. Continue BiPAP at night and when necessary or napping. Continue with Levaquin for 5-7 days. Continue Solu-Medrol IV as he still continues to be quite bronchospastic. Patient possibly taper him in the morning if he has better air entry. Continue Spiriva. Continue with nebulizers every 4-6 hours. Avoid narcotics and sedatives if possible. He may benefit from a Lidoderm patch and tramadol for pain control. Continue with incentive spirometry. Patient should have full PFTs as well as polysomnography upon hospital discharge. He should have nocturnal oximetry and ABG prior to hospital discharge to qualify for home BiPAP. He should follow up in pulmonary clinic with Dr. Egan within two week of discharge. Data Medications: Current Inpatient Medications Medications (Trade) Dose Ordered Sig/Jorge Luis Route Start Time Stop Time Status Last Admin Dose Admin Albuterol/ Ipratropium (Duoneb) 3 ml QIDR INH 07/14/17 20:00 08/13/17 19:59 07/16/17 15:39 3 ML Glucose (Glucose 40% Gel) 15-30 GRAMS 15 GRAMS... UD PRN PO 07/14/17 18:45 08/13/17 18:44 Glucose (Glucose Chew Tab) 4-8 Tablets 4 Tabl... UD PRN PO 07/14/17 18:45 08/13/17 18:44 Dextrose (Dextrose 50% 50ML Syringe) 25-50ML OF 50% DW IV FOR... UD PRN IV 07/14/17 18:45 08/13/17 18:44 Glucagon (Glucagon Inj) 1 mg UD PRN SQ 07/14/17 18:45 08/13/17 18:44 Insulin Aspart (novoLOG ASPART) SLIDING SCALE G... ACHS SC 07/14/17 21:00 08/13/17 20:59 07/16/17 17:33 6 UNITS Enoxaparin Sodium (Lovenox Inj) 40 mg Q24H SC 07/14/17 22:00 08/13/17 21:59 07/15/17 21:00 40 MG Acetaminophen (Tylenol Tab) 650 mg Q4H PRN PO 07/14/17 19:00 08/13/17 18:59 07/16/17 05:04 650 MG Al Hydrox/Mg Hydrox/Simethicone (Maalox Max Susp) 15 ml Q4H PRN PO 07/14/17 19:00 08/13/17 18:59 Magnesium Hydroxide (Milk Of Magnesia Susp) 30 ml Q12H PRN PO 07/14/17 19:00 08/13/17 18:59 07/16/17 12:41 30 ML Ondansetron HCl (Zofran Inj) 4 mg Q6H PRN IV 07/14/17 19:00 08/13/17 18:59 Polyethylene (Miralax Powder Packet) 17 gm DAILY PRN PO 07/14/17 19:00 08/13/17 18:59 07/16/17 16:04 17 GM Atorvastatin Calcium (Lipitor Tab) 80 mg QPM PO 07/14/17 21:00 08/13/17 20:59 07/15/17 21:07 80 MG Bupropion HCl (Wellbutrin-Xl Tab) 300 mg DAILY PO 07/15/17 09:00 08/14/17 08:59 07/16/17 08:54 300 MG Carvedilol (Coreg Tab) 12.5 mg BID PO 07/14/17 21:00 08/13/17 20:59 07/16/17 08:54 12.5 MG Gabapentin (Neurontin Cap) 800 mg QPM PO 07/14/17 21:00 08/13/17 20:59 07/15/17 21:07 800 MG Levothyroxine Sodium (Synthroid Tab) 50 mcg DAILYBB PO 07/15/17 06:00 08/14/17 05:59 07/16/17 05:04 50 MCG Lisinopril (Zestril Tab) 20 mg BID PO 07/14/17 21:00 08/13/17 20:59 07/16/17 08:54 20 MG Pantoprazole Sodium (Protonix Tab) 40 mg QAM PO 07/15/17 09:00 08/14/17 08:59 07/16/17 08:54 40 MG Quetiapine Fumarate (seroQUEL TAB) 500 mg HS PO 07/14/17 21:00 08/13/17 20:59 07/15/17 20:59 500 MG Miscellaneous Information (Order Awaiting Action) 1 ea QS N/A 07/14/17 20:30 08/13/17 20:29 Mirtazapine (Remeron Solutab) 30 mg QPM PO 07/14/17 21:00 08/13/17 20:59 07/15/17 20:58 30 MG Miscellaneous Information (Order Awaiting Action) 1 ea QS N/A 07/14/17 20:30 08/13/17 20:29 Ketorolac Tromethamine (Toradol Inj) 30 mg Q6H PRN IV 07/14/17 19:15 07/19/17 19:14 07/16/17 15:54 30 MG Lidocaine (Lidoderm Patch 5%) 1 patch QAM TD 07/15/17 09:00 08/14/17 08:59 07/16/17 08:53 1 PATCH Miscellaneous (Remove Lidoderm Patch) 1 ea DAILY@21 N/A 07/15/17 21:00 08/14/17 20:59 07/15/17 21:27 1 EA Levofloxacin 500 mg/Prmx 100 ml @ 100 mls/hr Q24H IV 07/15/17 12:00 07/16/17 23:59 07/16/17 12:39 100 MLS/HR Tiotropium [place] (Spiriva Handihaler Inhaler) 1 puff QAM INH 07/16/17 09:00 08/15/17 08:59 07/16/17 08:55 1 PUFF Insulin Glargine (Lantus Vial) 87 units HS SC 07/16/17 21:00 08/15/17 20:59 07/15/17 21:28 87 UNITS Methylprednisolone Sodium Succinate 40 mg/Syringe 0.64 ml @ 1.5 mls/min Q8H IV 07/16/17 14:00 08/14/17 00:00 07/16/17 12:41 1.5 MLS/MIN Levofloxacin (Levaquin Tab) 500 mg DAILY@11 PO 07/17/17 11:00 07/22/17 10:59 I & O: 24-Hour Column 07/17/17 07:59 Intake Total 1545 ml Output Total 200 ml Balance 1345 ml Vital Signs: Date Time Temp Pulse Resp B/P (MAP) Pulse Ox O2 Delivery O2 Flow Rate FiO2 07/16/17 16:03 36.6 73 18 160/88 (112) 95 Nasal Cannula 4.0 07/16/17 15:39 72 20 90 Nasal Cannula 4.0 07/16/17 12:24 36.4 78 16 150/76 (100) 94 Nasal Cannula 07/16/17 12:00 Nasal Cannula 4.0 07/16/17 11:12 74 20 93 Nasal Cannula 4.0 07/16/17 08:00 93 Nasal Cannula 4.0 07/16/17 07:23 69 20 93 Nasal Cannula 4.0 07/16/17 07:15 36.6 70 20 134/73 (93) 91 Nasal Cannula 4.0 07/16/17 04:22 36.6 78 24 148/75 (99) 93 Nasal Cannula 3.0 07/16/17 04:00 BiPAP 30 07/15/17 23:59 BiPAP 30 07/15/17 23:47 36.2 80 32 150/82 (104) 93 BiPAP 30 07/15/17 20:00 93 Mask 3.5 30 07/15/17 19:17 36.4 76 20 159/87 (111) 91 Nasal Cannula 3.0 07/15/17 19:13 72 20 91 Nasal Cannula 3.0 Laboratory Results: Last 24 Hours Test 07/15/17 20:16 07/16/17 06:16 07/16/17 06:56 07/16/17 07:09 Bedside Glucose 205 mg/dl 167 mg/dl White Blood Count 16.20 K/uL Red Blood Count 4.37 M/uL Hemoglobin 12.5 g/dL Hematocrit 39.7 % Mean Corpuscular Volume 90.8 fL Mean Corpuscular Hemoglobin 28.6 pg Mean Corpuscular Hemoglobin Concent 31.5 g/dl Platelet Count 169 K/uL Mean Platelet Volume 8.1 fL Neutrophils (%) (Auto) 90.3 % Lymphocytes (%) (Auto) 4.4 % Monocytes (%) (Auto) 5.0 % Eosinophils (%) (Auto) 0.0 % Basophils (%) (Auto) 0.0 % Neutrophils # (Auto) 14.63 K/uL Lymphocytes # (Auto) 0.71 K/uL Monocytes # (Auto) 0.81 K/uL Eosinophils # (Auto) 0.00 K/uL Basophils # (Auto) 0.00 K/uL RDW Standard Deviation 49.2 fL RDW Coefficient of Variation 15.1 % Immature Granulocyte % (Auto) 0.3 % Immature Granulocyte # (Auto) 0.05 K/uL Sodium Level 134 mmol/L Potassium Level 4.9 mmol/L Chloride Level 97 mmol/L Carbon Dioxide Level 36 mmol/L Anion Gap 2.0 mmol/L Blood Urea Nitrogen 26 mg/dl Creatinine 0.91 mg/dl Est Creatinine Clear Calc Drug Dose 129.5 ml/min Estimated GFR () 108.0 Estimated GFR (Non- 93.2 BUN/Creatinine Ratio 28.3 Random Glucose 174 mg/dl Calcium Level 8.8 mg/dl Magnesium Level 2.3 mg/dl Total Bilirubin 0.3 mg/dl Direct Bilirubin < 0.1 mg/dl Aspartate Amino Transf (AST/SGOT) 6 U/L Alanine Aminotransferase (ALT/SGPT) 15 U/L Alkaline Phosphatase 103 U/L Total Protein 6.2 gm/dl Albumin 2.7 gm/dl Arterial Blood pH 7.36 Arterial Blood Partial Pressure CO2 62 mmHg Arterial Blood Partial Pressure O2 72 mm/Hg Arterial Blood HCO3 35 mmol/L Arterial Blood Oxygen Saturation 92.3 % Arterial Blood Base Excess 7.2 mEq/L Arterial Blood Gas Delivery 4 L Jorge Test POS Test 07/16/17 11:21 07/16/17 16:05 Bedside Glucose 237 mg/dl 192 mg/dl
[2017-07-16] MEDS: ATORVASTATIN 40 MG TAB PO SCH (21:21)
[2017-07-16] MEDS: GABAPENTIN 400 MG CAP PO SCH (21:21)
[2017-07-16] MEDS: ENOXAPARIN 40 MG/0.4 ML SYR SC SCH (21:22)
[2017-07-16] MEDS: MIRTAZAPINE SOLTAB 15 MG PO SCH (21:23)
[2017-07-16] MEDS: QUETIAPINE FUMARATE 100 MG TAB PO SCH (21:23)
[2017-07-16] MEDS: INSULIN GLARGINE SC SCH (21:29)
[2017-07-17] VITALS (11 sets, daily range): BP systolic 148–173; BP diastolic 70–98; PULSE 61–79; TEMP 36.3–37; O2SAT 91–96
[2017-07-17] MEDS: KETOROLAC TROMETHAMINE 30 MG/ML VIAL IV PRN (00:04)
[2017-07-17] MEDS: LEVOTHYROXINE 50 MCG TAB PO SCH (05:36)
[2017-07-17] MEDS: METHYLPREDNISOLONE IV 40 MG in SYRINGE 0 ML IV SCH ×3 (05:36→21:09)
[2017-07-17] MEDS: MAGNESIUM HYDROXIDE SUSP 30 ML UDC PO PRN (05:42)
[2017-07-17] MEDS: ALBUT/IPRATROP 3MG/0.5MG NEB 3 ML VIAL INH SCH ×4 (07:18→19:36)
[2017-07-17 07:50] LABS: HEMATOCRIT 40.3 % (42-52); MEAN CELL VOLUME 90.8 fL (80-100); MEAN CORPUSCULAR HEMOGLOBIN 28.8 pg (25-34); MEAN CORPUSCULAR HGB CONC 31.8 g/dl (32-36); MEAN PLATELET VOLUME 8.6 fL (7.4-10.4); PLATELET COUNT 178 K/uL (130-400); RED BLOOD COUNT 4.44 M/uL (4.7-6.1); WHITE BLOOD COUNT 12.73 K/uL (4.8-10.8)
[2017-07-17] MEDS: TIOTROPIUM BROMIDE 5 PUFF/90 MCG INH INH SCH (08:09)
[2017-07-17] MEDS: BuPROPion XL 300 MG TABCR PO SCH (08:10)
[2017-07-17] MEDS: LISINOPRIL 20 MG TAB PO SCH ×2 (08:11→19:21)
[2017-07-17] MEDS: CARVEDILOL 12.5 MG TAB PO SCH ×2 (08:11→19:20)
[2017-07-17] MEDS: LIDODERM (LIDOCAINE) PATCH 5% TD SCH (08:12)
[2017-07-17] MEDS: PANTOprazole SOD 40 MG TAB PO SCH (08:12)
[2017-07-17] MEDS: INSULIN ASPART 100 UNITS/ML 3 ML PEN SC SCH ×4 (08:16→20:45)
[2017-07-17 08:19] LABS: BUN/CREATININE RATIO 30.5 (10-20); CALCIUM 8.6 mg/dl (8.5-10.1); CREATININE 0.84 mg/dl (0.60-1.40); POTASSIUM 4.9 mmol/L (3.5-5.1)
[2017-07-17] MEDS: LEVOFLOXACIN 500 MG TAB PO SCH (10:41)
--- NOTE | 2017-07-17 15:25 | Progress Note ---
Subjective Date of Service: Jul 17, 2017. Subjective Pt evaluation today including: conversation w/ patient, physical exam, chart review, lab review, review of studies, review of inpatient medication list Resting comfortably in bed No complaints at this time States improved with BiPAP at night Review of Systems Constitutional: No fever, No chills, No sweats, No weakness Respiratory: No cough, No sputum, No wheezing, No shortness of breath, No dyspnea on exertion Cardiac: No chest pain, No orthopnea, No PND Abdomen: No pain, No nausea, No vomiting, No diarrhea, No constipation Musculoskeletal: No joint pain, No muscle pain, No swelling, No calf pain Male : No dysuria, No urinary frequency, No incontinence, No slowing stream Neurologic: No memory loss, No paralysis, No weakness, No numbness/tingling Psychiatric: No depression symptoms, No anhedonism, No anxiety, No insomnia Endo: No fatigue, No excessive thirst Skin: No rash, No itch Objective Vital Signs Date Time Temp Pulse Resp B/P (MAP) Pulse Ox O2 Delivery O2 Flow Rate FiO2 07/17/17 14:51 67 16 93 Nasal Cannula 4.0 07/17/17 12:00 Nasal Cannula 4.0 07/17/17 11:18 71 18 93 Nasal Cannula 4.0 07/17/17 11:16 36.7 71 20 153/90 (111) 93 Nasal Cannula 4.0 07/17/17 08:01 36.3 61 20 158/92 (114) 93 Nasal Cannula 4.0 07/17/17 08:00 93 Nasal Cannula 4.0 07/17/17 07:18 66 18 93 Nasal Cannula 4.0 07/17/17 04:14 36.7 67 16 148/80 (102) 91 BiPAP 30 07/17/17 04:00 BiPAP 30 07/16/17 23:59 BiPAP 30 07/16/17 23:30 36.7 68 18 155/84 (107) 92 BiPAP 30 07/16/17 20:00 92 Nasal Cannula 4.0 07/16/17 19:48 36.7 69 20 163/92 (115) 92 Nasal Cannula 4.0 07/16/17 19:14 77 20 94 Nasal Cannula 4.0 07/16/17 16:03 36.6 73 18 160/88 (112) 95 Nasal Cannula 4.0 07/16/17 16:00 93 Nasal Cannula 4.0 07/16/17 15:39 72 20 90 Nasal Cannula 4.0 Physical Exam General Appearance: WD/WN, no apparent distress, + obese Eyes: normal inspection, PERRL, EOMI, sclerae normal Neck: supple, no adenopathy, thyroid normal, no JVD Respiratory/Chest: chest non-tender, lungs clear, normal breath sounds, no respiratory distress Cardiovascular: regular rate, rhythm, no edema, no gallop, no JVD Abdomen: normal bowel sounds, non tender, soft, no organomegaly Extremities: normal range of motion, non-tender, normal inspection, no pedal edema Neurologic/Psychiatric: no motor/sensory deficits, alert, normal mood/affect, oriented x 3 Skin: normal color, warm/dry, no rash Lymphatic: no adenopathy Laboratory Results Last 24 Hours Test 07/16/17 16:05 07/16/17 20:20 07/17/17 06:33 07/17/17 07:25 Bedside Glucose 192 mg/dl 182 mg/dl 122 mg/dl White Blood Count 12.73 K/uL Red Blood Count 4.44 M/uL Hemoglobin 12.8 g/dL Hematocrit 40.3 % Mean Corpuscular Volume 90.8 fL Mean Corpuscular Hemoglobin 28.8 pg Mean Corpuscular Hemoglobin Concent 31.8 g/dl RDW Standard Deviation 50.2 fL RDW Coefficient of Variation 15.3 % Platelet Count 178 K/uL Mean Platelet Volume 8.6 fL Sodium Level 135 mmol/L Potassium Level 4.9 mmol/L Chloride Level 96 mmol/L Carbon Dioxide Level 39 mmol/L Anion Gap 0.0 mmol/L Blood Urea Nitrogen 26 mg/dl Creatinine 0.84 mg/dl Est Creatinine Clear Calc Drug Dose 140.9 ml/min Estimated GFR () 112.7 Estimated GFR (Non- 97.2 BUN/Creatinine Ratio 30.5 Random Glucose 123 mg/dl Calcium Level 8.6 mg/dl Test 07/17/17 11:44 Bedside Glucose 242 mg/dl Assessment and Plan Pt is a 57 y/o male with a history of COPD, DM II w/ neuropathy, HTN, HLD, post ablative hypothyroidism, bipolar d/o, h/o bladder cancer currently in remission , BPH and GERD who presented for direct admission from [facility] on 07/14 with COPD exacerbation and acute on chronic hypercapnic and hypoxemic respiratory failure. CXR and chest CT did not show any acute rib fractures or acute cardiopulmonary findings but showed emphysematous changes. ABG from [facility] did show pH 7.26, pCO2 88, pO2 58. Pt also received 2 doses of oral prednisone at [facility] due to COPD exacerbation, but he was not placed on BiPAP there. Acute COPD exacerbation/Acute on chronic hypercapnic and hypoxemic respiratory failure/Current smoker. ABGs here are improving Pt much more alert Has h/o IKE and likely has OHS Continue BiPAP prn during day and at nighttime Will NEED OVERNIGHT OXIMETRY OFF BIPAP with abg the subsequent AM to qualify for BiPAP at home within 48 hrs of dc Will also need 2 step for daytime O2 within 48 hrs of dc Continue Solu-Medrol 40 mg IV and will taper to prednisone tomorrow DuoNebs QIDR Continue Levaquin 500mg daily for COPD exacerbation x 7 day course, can switch to po Consult pulmonology appreciated Pt was on Spiriva several years ago, but has not taken this as an outpt for a long time-restart on dc -needs Symbicort or Advair likely as well on dc -needs formal PFTs as outpt Left rib pain--no fractures seen on imaging reports-improved now -Toradol 30 mg IV q6h prn pain -lidocaine patch -Tylenol prn -Avoid narcotics as Dilaudid 0.5 mg IV x 1 caused significant respiratory depression DM II w/neuropathy--HgbA1c 7.9%, with hyperglycemia here due to steroids which is now improved with increased Lantus dose -Cont Lantus to 87 units SC hs for now, may need to titrate back down when steroids taper -Insulin sliding scale and add carb coverage -Check BSGs q ac and qhs -Continue gabapentin 800 mg PO hs HTN, HLD--stable -Continue lisinopril 20 mg PO BID, Coreg 12.5 mg PO BID and Lipitor 80 mg PO hs Post ablative hypothyroidism-no recent TSH in our records. TSH here low at 0.237. Not terribly off -Continue Synthroid 50 mcg PO qd which is home dose -repeat TSH in 4 weeks with PCP Bipolar d/o- Tox screen likely with false + MDMA from wellbutrin usage -Continue Rexulti 3 mg PO qd if he can bring from home -continue Wellbutrin 300 mg PO qd, Remeron 30 mg PO hs, and Seroquel 500 mg PO hs BPH, h/o bladder cancer--pt follows with Dr. Adkins - Vesicare 20 mg PO qam not available here-will watch for bladder issues GERD-continue PPI DVT prophylaxis -Enoxaparin 40 mg SC q24h -AJIT gupta and CHRISTYs Code Status -Level I, FULL RESUSCITATION STATUS
--- NOTE | 2017-07-17 15:45 | Pulmonology Progress Note ---
Pulmonary Progress Note Date of Service Jul 17, 2017. Attending Dr. Weiner Subjective Patient seen and examined. He states that he is feeling better. Still having nonproductive cough. No wheezing today. Ambulating well. More alert. He tolerated BIPAP well overnight. Objective Vital signs at the last 24 hours. MAXIMUM TEMPERATURE 36.7, blood pressure 148/ 80 to 158/92, pulse 61-71, respiratory rate 16-20, pulse oximetry 91-93% on 4 L nasal cannula. Gen.: Awake alert oriented 3, no acute respiratory distress. Able to speak in sentences without use of accessory muscles of respiration. CVS: S1-S2, regular rate and rhythm Lungs: Good air entry bilaterraly, prolonged expiratory phase Abdomen: Obese, nontender, nondistended bowel sounds positive Extremities: Trace edema bilateral lower extremities, no cyanosis, no clubbing Laboratory data reviewed. White blood count is done to 12 from 16. Carbon dioxide 39 Imaging reviewed. TTE from 07/16/2017 * 1. Top-normal left ventricular size for BSA. Normal left ventricular systolic function. EF 55-60%. No regional wall motion abnormalities. No left ventricular hypertrophy. Type 2 diastolic dysfunction. * 2. Aortic valve sclerosis mild, without significant aortic valvular stenosis. * 3. Mild aortic root dilatation. * 4. Could not estimate right ventricular systolic pressure due to inadequate tricuspid regurgitant jet. * 5. Technically difficult study, enhanced with IV Definity. * 6. No prior study available for comparison. Medications reviewed. Assessment & Plan COPD exacerbation Left flank pain status post fall Possible Obstructive sleep apnea Obesity hypoventilation syndrome Hypothyroidism Tobacco use disorder Diastolic dysfunction Mr. Alvarez is a 57-year-old male who presents after recent fall and complaints of left rib and flank pain. He was a direct transfer from [facility] after Dilaudid was administered and subsequently developed acute on chronic hypoxemic hypercapnic respiratory failure. Patient is currently wheezing and is likely in COPD exacerbation at this time.TTE shows grade 2 diastolic systolic dysfunction. TSH mildly decreased. TODAY: Patient is feeling better from a respiratory standpoint. He still continues to have nonproductive cough. He is more alert today. Recommendations The current time I would continue with supplemental oxygen to maintain SaO2 between 88-92%. Continue BiPAP at night and when necessary or napping. Continue with Levaquin for 5-7 days. Switch in over to prednisone in AM and taper over the next 14 days. Continue Spiriva. Continue with nebulizers every 4-6 hours. Avoid narcotics and sedatives if possible. He may benefit from a Lidoderm patch and tramadol for pain control. Continue with incentive spirometry. Patient should have full PFTs as well as polysomnography upon hospital discharge. He should have nocturnal oximetry and ABG prior to hospital discharge to qualify for home BiPAP. He should follow up in pulmonary clinic with Dr. Egan within two week of discharge. I will sign off case today. Please contact me if you have any other questions or concerns. Data Medications: Current Inpatient Medications Medications (Trade) Dose Ordered Sig/Jorge Luis Route Start Time Stop Time Status Last Admin Dose Admin Albuterol/ Ipratropium (Duoneb) 3 ml QIDR INH 07/14/17 20:00 08/13/17 19:59 07/17/17 14:50 3 ML Glucose (Glucose 40% Gel) 15-30 GRAMS 15 GRAMS... UD PRN PO 07/14/17 18:45 08/13/17 18:44 Glucose (Glucose Chew Tab) 4-8 Tablets 4 Tabl... UD PRN PO 07/14/17 18:45 08/13/17 18:44 Dextrose (Dextrose 50% 50ML Syringe) 25-50ML OF 50% DW IV FOR... UD PRN IV 07/14/17 18:45 08/13/17 18:44 Glucagon (Glucagon Inj) 1 mg UD PRN SQ 07/14/17 18:45 08/13/17 18:44 Insulin Aspart (novoLOG ASPART) SLIDING SCALE G... ACHS SC 07/14/17 21:00 08/13/17 20:59 07/17/17 12:39 9 UNITS Enoxaparin Sodium (Lovenox Inj) 40 mg Q24H SC 07/14/17 22:00 08/13/17 21:59 07/16/17 21:22 40 MG Acetaminophen (Tylenol Tab) 650 mg Q4H PRN PO 07/14/17 19:00 08/13/17 18:59 07/16/17 05:04 650 MG Al Hydrox/Mg Hydrox/Simethicone (Maalox Max Susp) 15 ml Q4H PRN PO 07/14/17 19:00 08/13/17 18:59 Magnesium Hydroxide (Milk Of Magnesia Susp) 30 ml Q12H PRN PO 07/14/17 19:00 08/13/17 18:59 07/17/17 05:42 30 ML Ondansetron HCl (Zofran Inj) 4 mg Q6H PRN IV 07/14/17 19:00 08/13/17 18:59 Polyethylene (Miralax Powder Packet) 17 gm DAILY PRN PO 07/14/17 19:00 08/13/17 18:59 07/16/17 16:04 17 GM Atorvastatin Calcium (Lipitor Tab) 80 mg QPM PO 07/14/17 21:00 08/13/17 20:59 07/16/17 21:21 80 MG Bupropion HCl (Wellbutrin-Xl Tab) 300 mg DAILY PO 07/15/17 09:00 08/14/17 08:59 07/17/17 08:10 300 MG Carvedilol (Coreg Tab) 12.5 mg BID PO 07/14/17 21:00 08/13/17 20:59 07/17/17 08:11 12.5 MG Gabapentin (Neurontin Cap) 800 mg QPM PO 07/14/17 21:00 08/13/17 20:59 07/16/17 21:21 800 MG Levothyroxine Sodium (Synthroid Tab) 50 mcg DAILYBB PO 07/15/17 06:00 08/14/17 05:59 07/17/17 05:36 50 MCG Lisinopril (Zestril Tab) 20 mg BID PO 07/14/17 21:00 08/13/17 20:59 07/17/17 08:11 20 MG Pantoprazole Sodium (Protonix Tab) 40 mg QAM PO 07/15/17 09:00 08/14/17 08:59 07/17/17 08:12 40 MG Quetiapine Fumarate (seroQUEL TAB) 500 mg HS PO 07/14/17 21:00 08/13/17 20:59 07/16/17 21:23 500 MG Miscellaneous Information (Order Awaiting Action) 1 ea QS N/A 07/14/17 20:30 08/13/17 20:29 Mirtazapine (Remeron Solutab) 30 mg QPM PO 07/14/17 21:00 08/13/17 20:59 07/16/17 21:23 30 MG Miscellaneous Information (Order Awaiting Action) 1 ea QS N/A 07/14/17 20:30 08/13/17 20:29 Ketorolac Tromethamine (Toradol Inj) 30 mg Q6H PRN IV 07/14/17 19:15 07/19/17 19:14 07/17/17 00:04 30 MG Lidocaine (Lidoderm Patch 5%) 1 patch QAM TD 07/15/17 09:00 08/14/17 08:59 07/17/17 08:12 1 PATCH Miscellaneous (Remove Lidoderm Patch) 1 ea DAILY@21 N/A 07/15/17 21:00 08/14/17 20:59 07/16/17 21:22 1 EA Tiotropium [place] (Spiriva Handihaler Inhaler) 1 puff QAM INH 07/16/17 09:00 08/15/17 08:59 07/17/17 08:09 1 PUFF Insulin Glargine (Lantus Vial) 87 units HS SC 07/16/17 21:00 08/15/17 20:59 07/16/17 21:29 87 UNITS Methylprednisolone Sodium Succinate 40 mg/Syringe 0.64 ml @ 1.5 mls/min Q8H IV 07/16/17 14:00 08/14/17 00:00 07/17/17 12:40 1.5 MLS/MIN Levofloxacin (Levaquin Tab) 500 mg DAILY@11 PO 07/17/17 11:00 07/22/17 10:59 07/17/17 10:41 500 MG I & O: 24-Hour Column 07/18/17 07:59 Intake Total 795 ml Output Total 0 ml Balance 795 ml Vital Signs: Date Time Temp Pulse Resp B/P (MAP) Pulse Ox O2 Delivery O2 Flow Rate FiO2 07/17/17 14:51 67 16 93 Nasal Cannula 4.0 07/17/17 12:00 Nasal Cannula 4.0 07/17/17 11:18 71 18 93 Nasal Cannula 4.0 07/17/17 11:16 36.7 71 20 153/90 (111) 93 Nasal Cannula 4.0 07/17/17 08:01 36.3 61 20 158/92 (114) 93 Nasal Cannula 4.0 07/17/17 08:00 93 Nasal Cannula 4.0 07/17/17 07:18 66 18 93 Nasal Cannula 4.0 07/17/17 04:14 36.7 67 16 148/80 (102) 91 BiPAP 30 07/17/17 04:00 BiPAP 30 07/16/17 23:59 BiPAP 30 07/16/17 23:30 36.7 68 18 155/84 (107) 92 BiPAP 30 07/16/17 20:00 92 Nasal Cannula 4.0 07/16/17 19:48 36.7 69 20 163/92 (115) 92 Nasal Cannula 4.0 07/16/17 19:14 77 20 94 Nasal Cannula 4.0 07/16/17 16:03 36.6 73 18 160/88 (112) 95 Nasal Cannula 4.0 07/16/17 16:00 93 Nasal Cannula 4.0 07/16/17 15:39 72 20 90 Nasal Cannula 4.0 Laboratory Results: Last 24 Hours Test 07/16/17 16:05 07/16/17 20:20 07/17/17 06:33 07/17/17 07:25 Bedside Glucose 192 mg/dl 182 mg/dl 122 mg/dl White Blood Count 12.73 K/uL Red Blood Count 4.44 M/uL Hemoglobin 12.8 g/dL Hematocrit 40.3 % Mean Corpuscular Volume 90.8 fL Mean Corpuscular Hemoglobin 28.8 pg Mean Corpuscular Hemoglobin Concent 31.8 g/dl RDW Standard Deviation 50.2 fL RDW Coefficient of Variation 15.3 % Platelet Count 178 K/uL Mean Platelet Volume 8.6 fL Sodium Level 135 mmol/L Potassium Level 4.9 mmol/L Chloride Level 96 mmol/L Carbon Dioxide Level 39 mmol/L Anion Gap 0.0 mmol/L Blood Urea Nitrogen 26 mg/dl Creatinine 0.84 mg/dl Est Creatinine Clear Calc Drug Dose 140.9 ml/min Estimated GFR () 112.7 Estimated GFR (Non- 97.2 BUN/Creatinine Ratio 30.5 Random Glucose 123 mg/dl Calcium Level 8.6 mg/dl Test 07/17/17 11:44 Bedside Glucose 242 mg/dl
[2017-07-17] MEDS: ACETYLCYSTEINE 20% INHAL SOLN ***DISPENSED BY RESP. INH SCH (19:20)
[2017-07-17] MEDS: ACETAMINOPHEN 325 MG TAB PO PRN ×2 (19:20→23:37)
[2017-07-17] MEDS: MIRTAZAPINE SOLTAB 15 MG PO SCH (20:40)
[2017-07-17] MEDS: GABAPENTIN 400 MG CAP PO SCH (20:40)
[2017-07-17] MEDS: QUETIAPINE FUMARATE 100 MG TAB PO SCH (20:41)
[2017-07-17] MEDS: ATORVASTATIN 40 MG TAB PO SCH (20:41)
[2017-07-17] MEDS: INSULIN GLARGINE SC SCH (20:46)
[2017-07-17] MEDS: ENOXAPARIN 40 MG/0.4 ML SYR SC SCH (21:09)
[2017-07-18] VITALS (8 sets, daily range): BP systolic 130–176; BP diastolic 69–95; PULSE 64–102; TEMP 36.6–36.8; O2SAT 91–99
[2017-07-18] MEDS: METHYLPREDNISOLONE IV 40 MG in SYRINGE 0 ML IV SCH ×2 (06:26→13:18)
[2017-07-18] MEDS: LEVOTHYROXINE 50 MCG TAB PO SCH (06:27)
[2017-07-18] MEDS: ACETAMINOPHEN 325 MG TAB PO PRN (06:28)
[2017-07-18] MEDS: ACETYLCYSTEINE 20% INHAL SOLN ***DISPENSED BY RESP. INH SCH (07:06)
[2017-07-18] MEDS: ALBUT/IPRATROP 3MG/0.5MG NEB 3 ML VIAL INH SCH ×3 (07:06→15:09)
[2017-07-18] MEDS: LISINOPRIL 20 MG TAB PO SCH (08:03)
[2017-07-18] MEDS: TIOTROPIUM BROMIDE 5 PUFF/90 MCG INH INH SCH (08:03)
[2017-07-18] MEDS: BuPROPion XL 300 MG TABCR PO SCH (08:04)
[2017-07-18] MEDS: PANTOprazole SOD 40 MG TAB PO SCH (08:04)
[2017-07-18] MEDS: CARVEDILOL 12.5 MG TAB PO SCH (08:04)
[2017-07-18] MEDS: LIDODERM (LIDOCAINE) PATCH 5% TD SCH (08:05)
[2017-07-18] MEDS: INSULIN ASPART 100 UNITS/ML 3 ML PEN SC SCH ×2 (08:10→12:24)
[2017-07-18] MEDS ORDERED: NURSING VERBAL MED ORDER ONE (08:30)
[2017-07-18 09:56] LABS: ARTERIAL BLD GAS O2 SATURATION 90.2 % (90-95); ARTERIAL BLOOD GAS BASE EXCESS 7.9 mEq/L (-9-1.8); ARTERIAL BLOOD GAS HCO3 35 mmol/L (19-24); ARTERIAL BLOOD GAS PO2 63 mm/Hg (80-95); ARTERIAL BLOOD GAS pH 7.39 (7.35-7.45)
[2017-07-18 09:57] LABS: ALLEN TEST POS (POS); O2 ADMINISTRATION 4L
[2017-07-18] MEDS: LEVOFLOXACIN 500 MG TAB PO SCH (10:29)
[2017-07-18 12:57] LABS: BUN/CREATININE RATIO 28.2 (10-20); CALCIUM 8.5 mg/dl (8.5-10.1); CREATININE 0.73 mg/dl (0.60-1.40); POTASSIUM 4.5 mmol/L (3.5-5.1)
[2017-07-18] MEDS ORDERED: LDDP5 TD (14:55)
[2017-07-18] MEDS ORDERED: LVQ500 PO (14:55)
[2017-07-18] MEDS ORDERED: INSDGI SC (14:55)
[2017-07-18] MEDS ORDERED: SPRIN INH (14:55)
[2017-07-18] MEDS ORDERED: PRED10TA PO (14:55)
--- NOTE | 2017-07-18 15:02 | Discharge Instructions ---
Discharge Instructions Date of Service Jul 18, 2017. Admission Reason for Admission: Acute On Chronic Respiratory Failure Discharge Discharge Diagnosis / Problem: Acute on chronic respiratory failure, COPD Discharge Goals Goal(s): Decrease discomfort, Improve function, Increase independence, Improve disease control, Diagnostic testing, Therapeutic intervention, Prevent Disease Progression Activity Recommendations Activity Limitations: resume your previous activity Exercise/Sports Limitations: as tolerated . Instructions / Follow-Up Instructions / Follow-Up Patient to be discharged home with home health Please note new medication changes: Patient will need antibiotic levaquin 500 mg tablet to take daily for 5 more days Please also use inhaler spiriva one puff daily in the morning for COPD Please take prednisone taper as directed Please note increase in lantus to 87 units as well Finally also provided script for lidoderm patch, to apply once daily for pain Patient is also qualified for oxygen, will need 2 liters with ambulation Patient also qualifies for Bipap at night with settings 07/15 Please follow up with Dr Gill in 1-2 weeks Follow up with medical practice manager Dr Egan in 1 week Patient should have full PFTs as well as polysomnography upon hospital discharge Current Hospital Diet Patient's current hospital diet: Diabetes Type 2 Diet, AHA Diet (Heart Healthy) Discharge Diet Recommended Diet: AHA Diet (Heart Healthy), Diabetes Type 2 Diet Pending Studies Studies pending at discharge: no Laboratory Results Hemoglobin A1c Test 07/15/17 08:50 Range/Units Estimated Average Glucose 180 mg/dl Hemoglobin A1c 7.9 H 4.5-5.6 % Medical Emergencies . Who to Call and When: Medical Emergencies: If at any time you feel your situation is an emergency, please call 911 immediately. . Non-Emergent Contact Non-Emergency issues call your: Primary Care Provider Call Non-Emergent contact if: you have a fever, your pain is worsening, you have any medication questions . . "Provider Documentation" section prepared by Gopi Chapman. . VTE Core Measure Inpt VTE Proph given/why not?: Enoxaparin (Lovenox)JAN, T.E.Fred. Maggi, SCD's
--- NOTE | 2017-07-18 16:25 | Discharge Summary ---
Discharge Summary Date of Service Jul 18, 2017. Discharge Summary Admission Date: Jul 14, 2017 at 17:22 Discharge Date: Jul 18, 2017 Discharge Disposition: Home with services Principal Diagnosis: COPD exacerbation, chronic respiratory failure Consultations: Pulmonary Medication Reconciliation New Medications: Prednisone Tab (Prednisone) 10 Mg Tab 10 MG PO UD, #30 TAB Take 4 pills daily for 3 days then 3 pills daily for 3 days then 2 pills daily for 3 days then 1 pill daily for 3 days Insulin Glargine (Lantus) 100 Unit/Ml Inj 87 UNITS SC HS, #1 PEN Levofloxacin (Levofloxacin) 500 Mg Tab 500 MG PO DAILY@11, #5 TAB Lidocaine (Lidocaine) 1 Patch Tdsy 1 PATCH TD QAM, #30 PATCH Tiotropium Sperry (Spiriva Handihaler) 5 Puff/90 Mcg Aerp 1 PUFF INH QAM, #1 INHALER Continued Medications: Albuterol (Proair Hfa) Aers 4 PUFFS INH QID PRN for Shortness of Breath Atorvastatin (Lipitor) 80 Mg Tab 80 MG PO QPM, TAB Brexpiprazole (Rexulti) 0.5 Mg Tab 3 MG PO QAM Bupropion HCl (Wellbutrin Xl) 300 Mg Tabcr 300 MG PO DAILY Carvedilol (Coreg) 12.5 Mg Tab 12.5 MG PO BID, TAB Gabapentin (Gabapentin) 400 Mg Cap 800 MG PO QPM Insulin Lispro (Humalog) Inj 15 UNITS SC TIDM, VIAL Levothyroxine Sodium (Levothyroxine Sodium) 50 Mcg Tab 50 MCG PO QAM Lisinopril (Lisinopril) 20 Mg Tab 20 MG PO BID Melatonin (Melatonin) 10 Mg Cap 60 MG PO HS Mirtazapine (Mirtazapine Odt) 30 Mg Tab 30 MG PO QPM Pantoprazole (Pantoprazole Sodium) 40 Mg Tab 40 MG PO QAM Quetiapine Fumarate (Seroquel) 100 Mg Tab 500 MG PO HS, TAB Solifenacin (Vesicare) 10 Mg Tab 20 MG PO QAM, TAB Discontinued Medications: Insulin Glargine (Lantus) Vial 77 UNITS SC HS, VIAL Discharge Exam Review of Systems: Constitutional: No fever, No chills, No sweats, No weakness Eyes: No worsening of vision, No eye pain, No redness, No discharge Respiratory: + cough, + wheezing, + dyspnea on exertion, No sputum, No shortness of breath, No dyspnea at rest Cardiovascular: No chest pain, No orthopnea, No PND, No edema Abdomen: No pain, No nausea, No vomiting, No diarrhea Musculoskeletal: No joint pain, No muscle pain, No swelling, No calf pain Genitourinary - Male: No hematuria, No dysuria, No urinary frequency, No urinary urgency Neurologic: No memory loss, No paralysis, No weakness, No numbness/tingling Psychiatric: No depression symptoms, No anhedonism, No anxiety, No insomnia Endocrine: No fatigue, No excessive thirst Integumentary: No rash, No itch Physical Exam: General Appearance: WD/WN, no apparent distress Eyes: normal inspection, PERRL, EOMI, sclerae normal Neck: supple, no adenopathy, thyroid normal, no JVD Respiratory/Chest: chest non-tender, no respiratory distress, no accessory muscle use, + wheezing Cardiovascular: regular rate, rhythm, no edema, no gallop, no JVD Abdomen / GI: normal bowel sounds, non tender, soft, no organomegaly, no pulsatile mass Extremities: normal inspection, no calf tenderness, normal capillary refill , no pedal edema Neurologic/Psychiatric: no motor/sensory deficits, alert, normal mood/affect , normal reflexes, oriented x 3 Skin: normal color, warm/dry, no rash Lymphatic: no adenopathy Hospital Course Pt is a 57 y/o male with a history of COPD, DM II w/ neuropathy, HTN, HLD, post ablative hypothyroidism, bipolar d/o, h/o bladder cancer currently in remission , BPH and GERD who presented for direct admission from [facility] on 07/14 with COPD exacerbation and acute on chronic hypercapnic and hypoxemic respiratory failure. CXR and chest CT did not show any acute rib fractures or acute cardiopulmonary findings but showed emphysematous changes. ABG from [facility] did show pH 7.26, pCO2 88, pO2 58. Pt also received 2 doses of oral prednisone at [facility] due to COPD exacerbation, but he was not placed on BiPAP there. Acute COPD exacerbation/Acute on chronic hypercapnic and hypoxemic respiratory failure/Current smoker. ABGs here are improving Pt much more alert Has h/o IKE and likely has OHS Continue BiPAP prn during day and at nighttime OVERNIGHT OXIMETRY OFF BIPAP with ABG on 07/18 pt does qualify for BiPAP (/) as well as oxygen with ambulation (2L) Continue Solu-Medrol 40 mg IV and pred taper on DC Spiriva on DC as well DuoNebs QIDR Continue Levaquin 500mg daily for COPD exacerbation x 7 day course Consult pulmonology appreciated Needs formal PFTs as outpt Left rib pain--no fractures seen on imaging reports-improved now -Toradol 30 mg IV q6h prn pain -lidocaine patch on DC -Tylenol prn -Avoid narcotics as Dilaudid 0.5 mg IV x 1 caused significant respiratory depression DM II w/neuropathy--HgbA1c 7.9%, with hyperglycemia here due to steroids which is now improved with increased Lantus dose -Cont Lantus to 87 units SC hs for now due to steroids -Insulin sliding scale and add carb coverage -Check BSGs q ac and qhs -Continue gabapentin 800 mg PO hs HTN, HLD--stable -Continue lisinopril 20 mg PO BID, Coreg 12.5 mg PO BID and Lipitor 80 mg PO hs Post ablative hypothyroidism-no recent TSH in our records. TSH here low at 0.237. Not terribly off -Continue Synthroid 50 mcg PO qd which is home dose -repeat TSH in 4 weeks with PCP Bipolar d/o- Tox screen likely with false + MDMA from wellbutrin usage -Continue Rexulti 3 mg PO qd if he can bring from home -continue Wellbutrin 300 mg PO qd, Remeron 30 mg PO hs, and Seroquel 500 mg PO hs BPH, h/o bladder cancer--pt follows with Dr. Adkins - Vesicare 20 mg PO qam not available here-will watch for bladder issues GERD-continue PPI DVT prophylaxis -Enoxaparin 40 mg SC q24h -AJIT gupta and SCDs Code Status -Level I, FULL RESUSCITATION STATUS Total Time Spent: Greater than 30 minutes This includes examination of the patient, discharge planning, medication reconciliation, and communication with other providers. Discharge Instructions Please refer to the electronic Patient Visit Report (Discharge Instructions) for additional information. Additional Copies To Jovani Gill M.D.
== END 2017-07-18 16:44 | disposition home or self-care (01) | DRG 190 ==
LOC: C.MED 17:22 → ENRESERV 19:05 → C.2T 20:15
PROVIDERS: ADMIT Hospitalist; ATTEND Hospitalist
DX: J44.1 Chronic obstructive pulmonary disease with (acute) exacerbation (principal); J96.21 Acute and chronic respiratory failure with hypoxia; J96.22 Acute and chronic respiratory failure with hypercapnia; E66.2 Morbid (severe) obesity with alveolar hypoventilation; Z68.41 Body mass index [BMI] 40.0-44.9, adult; R07.81 Pleurodynia; E11.40 Type 2 diabetes mellitus with diabetic neuropathy, unspecified; E89.0 Postprocedural hypothyroidism; N40.0 Benign prostatic hyperplasia without lower urinary tract symptoms; K21.9 Gastro-esophageal reflux disease without esophagitis; I10 Essential (primary) hypertension; F31.9 Bipolar disorder, unspecified; F17.200 Nicotine dependence, unspecified, uncomplicated; Z51.81 Encounter for therapeutic drug level monitoring; Z79.899 Other long term (current) drug therapy; Z85.51 Personal history of malignant neoplasm of bladder; Z80.0 Family history of malignant neoplasm of digestive organs

== ENCOUNTER → 2017-12-29 | Outpatient (CLI) | payer OTHER ==
[~2017-12-29] MED LIST changes: -CHLO100T8 PO; -CIPR-255 PO; -FLVHFA110 INH; +LDDP5 TD; +LVQ500 PO; -MIRT30TA5 PO; +PRED10TA PO; +QUET1TAB34 PO; -SILO8CAP PO; +SPRIN INH; -TIOTCAP INH; +WLLSR/300 PO; +[UNRECOGNIZED DRUG - CODE] PO
== END | disposition home or self-care (01) ==
LOC: C.LABSPEC 17:19
PROVIDERS: ATTEND Urology
DX: R39.12 Poor urinary stream (principal)

== ENCOUNTER → 2018-03-18 | Outpatient (CLI) | payer OTHER ==
[~2018-03-18] MED LIST changes: +AMLO5TAB3 PO; +ASPI81TA28 PO; +FLUT1INH INH; -HMLI SC; +HYDR12.55 PO; +INSULIN HUMALOG SQ; -LDDP5 TD; +LISI-726 PO; -LSN20 PO; -LVQ500 PO; -MELA1CAP9 PO; -PRED10TA PO; +SILO8CAP PO; -SOLI10TA2 PO; -SPRIN INH; +TRAZ100T29 PO
== END | disposition home or self-care (01) ==
LOC: C.LABSPEC 17:06
PROVIDERS: ATTEND Urology
DX: R39.12 Poor urinary stream (principal)

== ENCOUNTER → 2018-03-31 | Day surgery (SDC) | payer OTHER ==
[2018-03-03 09:37] VITALS: BMI 41.0
[2018-03-18 12:55] VITALS: Ht 188 cm; Wt 147.1 kg
--- NOTE | 2018-03-18 13:12 | PAT Medication Instructions ---
Service Date Mar 18, 2018. Current Home Medication List Albuterol (Proair Hfa), 4 PUFFS INH QID PRN for Shortness of Breath Amlodipine (Norvasc), 5 MG PO QAM Aspirin (Aspirin Ec), 81 MG PO AM Atorvastatin (Lipitor), 80 MG PO QPM Brexpiprazole (Rexulti), 4 MG PO QAM Bupropion HCl (Wellbutrin Xl), 300 MG PO QAM Carvedilol (Coreg), 12.5 MG PO BID Fluticasone Furoate-Vilanterol (Breo Ellipta), 1 PUFF INH QAM Gabapentin (Gabapentin), 800 MG PO QPM Hydrochlorothiazide (Hydrochlorothiazide), 1 TAB PO QAM Insulin Glargine (Lantus), 87 UNITS SC HS Insulin Glargine (Lantus), 130 UNITS SC QPM Levothyroxine Sodium (Levothyroxine Sodium), 50 MCG PO QAM Lisinopril (Lisinopril), 20 MG PO BID Mirtazapine (Mirtazapine Odt), 30 MG PO QPM Pantoprazole (Pantoprazole Sodium), 40 MG PO QAM Quetiapine Fumarate (Seroquel), 500 MG PO HS Silodosin (Rapaflo), 1 CAP PO HS Trazodone Hcl (Trazodone), 200 MG PO HS [Insulin Humalog], 15 UNITS SQ TIDM Medication Instructions For Your Scheduled Surgery - Per surgeon and rating specialist instructions: Aspirin (Aspirin Ec), 81 MG PO AM - Hold the following medications the morning of surgery: Lisinopril (Lisinopril), 20 MG PO BID Hydrochlorothiazide (Hydrochlorothiazide), 1 TAB PO QAM [Insulin Humalog], 15 UNITS SQ TIDM - Take the following medications the morning of surgery with a sip of water: Albuterol (Proair Hfa), 4 PUFFS INH QID PRN for Shortness of Breath (if needed) Amlodipine (Norvasc), 5 MG PO QAM Bupropion HCl (Wellbutrin Xl), 300 MG PO QAM Carvedilol (Coreg), 12.5 MG PO BID Fluticasone Furoate-Vilanterol (Breo Ellipta), 1 PUFF INH QAM Levothyroxine Sodium (Levothyroxine Sodium), 50 MCG PO QAM Pantoprazole (Pantoprazole Sodium), 40 MG PO QAM Brexpiprazole (Rexulti), 4 MG PO QAM - Take the following medications as scheduled the night before surgery: [Insulin Humalog], 15 UNITS SQ TIDM Silodosin (Rapaflo), 1 CAP PO HS Trazodone Hcl (Trazodone), 200 MG PO HS Quetiapine Fumarate (Seroquel), 500 MG PO HS Mirtazapine (Mirtazapine Odt), 30 MG PO QPM Lisinopril (Lisinopril), 20 MG PO BID Insulin Glargine (Lantus), 130 UNITS SC QPM Insulin Glargine (Lantus), 87 UNITS SC HS Gabapentin (Gabapentin), 800 MG PO QPM Carvedilol (Coreg), 12.5 MG PO BID Atorvastatin (Lipitor), 80 MG PO QPM Albuterol (Proair Hfa), 4 PUFFS INH QID PRN for Shortness of Breath (if needed) [Insulin Humalog], 15 UNITS SQ TIDM If you have any questions please call us at [phone] or [phone] or [phone]
--- NOTE | 2018-03-18 13:52 | DIAGNOSTIC IMAGING REPORT ---
CHEST 2 VIEWS ROUTINE CLINICAL HISTORY: 58 years-old Male presenting with preoperative assessment, history of bladder cancer. TECHNIQUE: PA and lateral views of the chest were obtained. COMPARISON: Chest CT from 07/13/2017 and chest x-ray from 01/12/2015. FINDINGS: Cardiomediastinal silhouette normal. Bandlike opacity at the left lung base unchanged. No new focal opacity. No pleural effusion or pneumothorax. Osseous structures normal. Upper abdomen normal. IMPRESSION: 1. Stable left basilar atelectasis or scarring. If there is clinical concern for intrathoracic metastatic disease, chest CT should be obtained given the extremely low sensitivity of radiography. No acute cardiopulmonary disease. Electronically signed by: Tello Bauman M.D. 03/18/2018 1:51 PM Dictated Date/Time: 03/18/2018 1:48 PM
[2018-03-18 14:15] LABS: BASO % 0.4 %; BASO ABS # 0.04 K/uL (0-0.2); EOS % 1.9 %; EOS ABS # 0.21 K/uL (0-0.5); HEMATOCRIT 41.6 % (42-52); HEMOGLOBIN 13.3 g/dL (14.0-18.0); IG# 0.02 K/uL (0.00-0.02); LYMPH % 20.8 %; LYMPH ABS # 2.27 K/uL (1.2-3.4); MEAN CELL VOLUME 89.8 fL (80-100); MEAN CORPUSCULAR HEMOGLOBIN 28.7 pg (25-34); MEAN PLATELET VOLUME 9.1 fL (7.4-10.4); MONO % 7.6 %; MONO ABS # 0.83 K/uL (0.11-0.59); NEUT % 69.1 %; NEUT ABS # 7.54 K/uL (1.4-6.5); PLATELET COUNT 237 K/uL (130-400); RED CELL DISTRIBUTION WIDTH CV 14.9 % (11.5-14.5); RED CELL DISTRIBUTION WIDTH SD 48.3 fL (36.4-46.3); WHITE BLOOD COUNT 10.91 K/uL (4.8-10.8)
[2018-03-18 14:29] LABS: CALCIUM 9.1 mg/dl (8.5-10.1); CREATININE 1.12 mg/dl (0.60-1.40); POTASSIUM 4.8 mmol/L (3.5-5.1)
[~2018-03-31] VITALS: Ht 188 cm; Wt 147.1 kg
[~2018-03-31] MED LIST changes: +ALBUTEROL 0.083% NEBU SOLN 3 ML VIAL INH STA; +ATROPINE SULFATE 0.1 MG/ML 5ML SYR IV PRN; +BELLADONNA/OPIUM SUPP 60 MG SUPP PR ONE; +CIPR-255 PO; +CIPROFLOXACIN / D5W 400 MG IV SCH; +Cysto-Conray II 17.2% 250ML BOTTLE ONE; +DEXAMETHASONE SOD INJ 4 MG/ML VIAL ONE; +EpHEDrine SULFATE INJ 50 MG/ML AMP IV PRN; +FENTANYL CITRATE INJ 50 MCG/1 ML 2 ML VIAL IV PRN; +FENTANYL CITRATE INJ 50 MCG/1 ML 2 ML VIAL ONE; +LACTATED RINGER'S 1000ML 1,000 ML IV SCH; +LIDOCAINE HCL 2% 2 ML VIAL (20MG/ML) ONE; +MIDAZOLAM HCL 1 MG/ML 2ML VIAL ONE; +ONDANSETRON INJ 2 MG/ML 2 ML VIAL IV PRN; +ONDANSETRON INJ 2 MG/ML 2 ML VIAL ONE; +OXYC-57 PO; +OXYCODONE/ACETAMINOPHEN 5-325 TAB PO PRN; +PATIENT'S ALLERGY INFO NEEDS ENTERED SCH; +PHEN-775 PO; +PHENAZOPYRIDINE HCL 200 MG TAB PO PRN; +PHENYLEPHRINE 100MCG/ML 5ML SYR ONE; +PROPOFOL IV EMULSION 10 MG/ML 20 ML VIAL ONE
[2018-03-31 05:52] VITALS: BP 138/82; PULSE 74; TEMP 36.7; O2SAT 94
[2018-03-31 06:56] VITALS: PULSE 63; O2SAT 95
--- NOTE | 2018-03-31 06:59 | History & Physical Bridge Note ---
H&P Re-Evaluation Bridge Note: I have examined the patient, reviewed the History & Physical and in the interval since the performance of the History & Physical I have noted the following changes of clinical significance: No changes noted
--- NOTE | 2018-03-31 07:14 | Discharge Instructions ---
Discharge Instructions Date of Service Mar 31, 2018. Admission Reason for Admission: Bladder Cancer, Bladder Neck Contracture Discharge Discharge Diagnosis / Problem: Bladder cancer, bladder neck contracture s/p TURBNC, bladder biopsy, fulgur Discharge Goals Goal(s): Improve disease control, Diagnostic testing, Therapeutic intervention Activity Recommendations Activity Limitations: as noted below Lifting Limitations: no more than 25 pounds, gradually increase as tolerated Exercise/Sports Limitations: rest today, gradually increase as tolerated May Resume Sexual Activity: when tolerated Shower/Bathe: tomorrow (no tub bath until brambila out) . Instructions / Follow-Up Instructions / Follow-Up As scheduled in office for removal of brambila and pathology discussion. Current Hospital Diet Patient's current hospital diet: Discharge Diet Recommended Diet: Regular Diet (good fluid intake) Procedures Procedures Performed: Cystoscopy, transurethral incision of bladder neck contracture, cold cup bladder biopsies and bipolar fulguration. Pending Studies Studies pending at discharge: yes List of pending studies: Pathology results. Medical Emergencies . Who to Call and When: Medical Emergencies: If at any time you feel your situation is an emergency, please call 911 immediately. . Non-Emergent Contact Non-Emergency issues call your: Urologist Call Non-Emergent contact if: you have a fever, temperature is above 101, your pain is not controlled, your pain is worsening, your pain is unusual for you, your pain is concerning you, you have any medication questions . . "Provider Documentation" section prepared by Edson Adkins. . [place] Drug Monitoring Program Search Results: patient reviewed within database, no issues identified
--- NOTE | 2018-03-31 07:46 | [facility] Operative Report ---
Operative Report Operative Date Mar 31, 2018. Pre-Operative Diagnosis History of Bladder cancer & Bladder Neck Contracture Post-Operative Diagnosis History of Bladder cancer & Bladder Neck Contracture Procedure(s) Performed Cystoscopy, cold cup bladder Biopsy, Bipolar Bladder Fulguration; Transurethral Incision of Bladder Neck Contracture Surgeon Dr. Efrain Adkins Applications Engineer Manufacturing Surgeon(s) none Estimated Blood Loss 5mL Findings Erythematous mucosa biopsied and fulgurated, open bladder neck contracture after completion of case. Specimens A: posterior bladder wall B: Right bladder wall C: Dome of bladder D: Left bladder wall Drains 22 Turkmen silicone Weiner to gravity drainage with 10 cc of sterile water in Anesthesia Type General Complication(s) none Disposition no Recovery Room / PACU Indications Pleasant 58-year-old male with a known history of recurrent urothelial carcinoma here today for incision of his bladder neck contracture found on office cystoscopy and bladder biopsies after maintenance BCG. Please see H&P for further details. Intravenous ciprofloxacin was provided for antibiotic coverage and SCDs used for DVT prophylaxis. Description of Procedure Patient was properly identified and brought into the operative suite after identification of appropriate consent in the chart. General anesthesia with laryngeal mask was initiated and patient was prepped and draped in the standard fashion for this procedure. Full timeout procedure was followed. 26 Turkmen bipolar resectoscope was introduced into the urethra using a visual obturator to the level of the bladder neck where a moderate bladder neck contracture was visualized. This still was sufficiently open to allow for passage of the resectoscope. Bipolar Prescott knife was used to make relaxing incisions at the 5 and 7 o'clock position to allow for easier resection and opening of the aperture. Resectoscope was removed and 21 Turkmen cystoscope was introduced into the bladder under direct visualization. Ureteral orifices were identified and noted to be well removed from the bladder neck. No clear papillary tumors were identified within the bladder. No stones or other abnormalities noted save for some erythematous mucosa on the posterior bladder, bladder dome and right bladder wall. Heavy [employer] cold cup biopsies were taken on the posterior bladder wall 2, right lateral wall 2, dome 1. Biopsy of apparently normal mucosa on the left bladder wall 1 was also taken to sample this area. Resectoscope was reintroduced with a bipolar button and excellent hemostasis was obtained. All areas of erythematous and abnormal appearing mucosa were fulgurated for ablative purposes. After this was complete excellent hemostasis was noted. No evidence of bladder perforation was identified. Bladder was partially distended and resectoscope was removed. 22 Turkmen silicone Weiner was placed to gravity drainage with return of clear irrigant. 10 cc of sterile water were placed within the balloon. Catheter was placed to gravity drainage and belladonna and opium suppository was provided for additional postoperative analgesia. Anesthesia was reversed and patient was transferred to the recovery room in stable condition. Follow-up CARE: Patient will be discharged home with a prescription for ciprofloxacin, Pyridium and Percocet. Postoperative appointment for trial of void and discussion of pathology is confirmed. Patient is instructed to contact our service should he note any fevers, chills, nausea, vomiting or other difficulties in the postoperative period. I attest to the content of the Intraoperative Record and any orders documented therein. Any exceptions are noted below.
[2018-03-31 08:45] VITALS: BP 142/83; PULSE 70; TEMP 36.5; O2SAT 94
--- NOTE | 2018-03-31 08:47 | Anesthesiology Progress Note ---
Anesthesia Post Op Note Date & Time Mar 31, 2018 at 08:47 Vital Signs Pain Intensity: 3 Vital Signs Past 12 Hours Date Time Temp Pulse Resp B/P (MAP) Pulse Ox O2 Delivery O2 Flow Rate FiO2 03/31/18 08:35 36.5 97 Nasal Cannula 3 03/31/18 08:34 71 21 03/31/18 08:34 71 21 98 03/31/18 08:31 130/82 03/31/18 08:29 72 12 03/31/18 08:29 72 12 100 03/31/18 08:28 73 17 100 03/31/18 08:28 73 17 03/31/18 08:26 131/86 03/31/18 08:23 74 15 100 03/31/18 08:23 72 15 03/31/18 08:21 126/88 03/31/18 08:18 74 12 93 03/31/18 08:18 74 12 03/31/18 08:16 129/83 03/31/18 08:13 73 25 94 03/31/18 08:13 73 25 03/31/18 08:12 71 19 03/31/18 08:12 71 19 95 03/31/18 08:11 135/81 03/31/18 08:07 72 13 92 03/31/18 08:07 71 13 03/31/18 08:02 74 13 155/88 92 03/31/18 08:02 74 13 03/31/18 07:57 75 12 03/31/18 07:57 75 12 95 03/31/18 07:56 140/83 03/31/18 07:53 149/104 03/31/18 07:52 78 12 92 03/31/18 07:52 36.3 16 16 149/104 97 Oxymask 10 03/31/18 07:52 78 12 03/31/18 06:56 63 16 95 Nasal Cannula 2.0 03/31/18 05:52 36.7 74 18 138/82 (100) 94 Nasal Cannula 2 Notes Mental Status: alert / awake / arousable, participated in evaluation Pt Amnestic to Procedure: Yes Nausea / Vomiting: adequately controlled Pain: adequately controlled Airway Patency, RR, SpO2: stable & adequate BP & HR: stable & adequate Hydration State: stable & adequate Anesthetic Complications: no major complications apparent
[2018-03-31 09:15] VITALS: BP 145/90; PULSE 75; TEMP 36.4; O2SAT 93
[2018-03-31 09:44] VITALS: BP 119/70; PULSE 77; TEMP 36.4; O2SAT 94
== END | disposition home or self-care (01) ==
LOC: C.ACU 05:00
PROVIDERS: ATTEND Urology
DX: N32.0 Bladder-neck obstruction (principal); N40.1 Benign prostatic hyperplasia with lower urinary tract symptoms; E78.5 Hyperlipidemia, unspecified; E03.9 Hypothyroidism, unspecified; E11.9 Type 2 diabetes mellitus without complications; F41.9 Anxiety disorder, unspecified; F32.9 Major depressive disorder, single episode, unspecified; I10 Essential (primary) hypertension; J45.909 Unspecified asthma, uncomplicated; J44.9 Chronic obstructive pulmonary disease, unspecified; E66.01 Morbid (severe) obesity due to excess calories; G47.33 Obstructive sleep apnea (adult) (pediatric); Z79.4 Long term (current) use of insulin; Z79.899 Other long term (current) drug therapy; Z68.41 Body mass index [BMI] 40.0-44.9, adult; F17.200 Nicotine dependence, unspecified, uncomplicated; Z80.52 Family history of malignant neoplasm of bladder